=== PATIENT | female | born 1950 | race Caucasian/White ===

== ENCOUNTER 2022-02-21 13:49 | Inpatient (IN) ==
--- NOTE | 2022-02-21 14:11 | ED.PDOC ---
General ED Provider: Dr. ISAIAH SALDAÑA MD Chief Complaint: Weakness Stated Complaint: Patient presents with a one month history of generalized weakness that has progressively worsened over the past 7-10 days. She can no longer stand or walk. Patient denies fever, chills, malaise, poor appetite, dyspnea, cough, chest pain, palpitations, syncope, nausea, emesis, abdominal pain, diarrhea, melena, hematochezia or urinary tract symptoms. She has had increased peripheral edema. Time Seen by Provider: 02/21/22 13:50 Mode of Arrival: Ambulance Information Source: Patient Primary Care Provider: ANN PAREDES Nursing and Triage Documentation Reviewed and Agree: Yes Does patient meet sepsis criteria?: No System Inflammatory Response Syndrome: Not Applicable Sepsis Protocol: For patient's 13 years and over: Temp is 96.8 and below OR 101 and greater Pulse >90 BPM Resp >20/minute Acutely Altered Mental Status Are patient's symptoms suggestive of a new infection, such as: -Pneumonia -Skin, Soft Tissue -Endocarditis -UTI -Bone, Joint Infection -Implantable Device -Acute Abdominal Infection -Wound Infection -Meningitis -Blood Stream Catheter Infection -Unknown Miscellaneous Complaint Exam Complex/Multi-System Complaint/Exam Onset/Duration: one month history of progressive generalized weakness Symptoms Are: Still present Initial Severity: Mild Current Severity: Severe Associated Signs and Symptoms: Reports Weakness and Edema Respiratory Distress: None JVD Present: No Tachypnea Present: No Stridor Present: No Abdominal Findings: Present Normal findings Focal Weakness: Present None Focal Sensory Loss: Present None Gait: Unable Gag Reflex Present: Yes Skin Findings: Present Normal findings In-Dwelling Device Present: No Review of Systems Review Of Systems Constitutional: Reports Weakness Eyes: Reports No symptoms Ears, Nose, Mouth, Throat: Reports No symptoms Respiratory: Reports No symptoms Cardiac: Reports Edema GI: Reports No symptoms : Reports No symptoms Musculoskeletal: Reports No symptoms Skin: Reports No symptoms Endocrine: Reports No symptoms Hematologic/Lymphatic: Reports No symptoms All Other Systems: Reviewed and Negative Physical Exam Physical Exam Appearance: Reports No pain distress, Obese and Other (Morbidly obese elderly female who is alert and in NAD. She is breathing without difficulty. She does appear to be chronically ill. ) Ill-appearing: Moderate (chronically ill appearing) Pain Distress: None Eyes: Reports Not Examined ENT: Reports Nose normal and Oropharynx normal Neck: Supple Respiratory: Reports Airway patent, Breath sounds clear and Breath sounds equal Cardiovascular: Reports RRR, No rub, No murmur and Not Examined (Marked edema bilaterally ) GI/: Reports Soft, Nontender, No masses and Bowel sounds normal Musculoskeletal: Reports Not Examined Skin: Reports Warm, Dry and Normal color Neurological: Reports Alert and Oriented Psychiatric: Reports Affect appropriate and Mood appropriate Interpretation Radiology Interpretation Radiology Interpretation By: Radiologist Exam Interpreted: Portable CXR (no acute cardiopulmonary findings) EKG Interpretation Time of EKG #1: 13:53 Rate: Normal Rhythm: Sinus Ectopy: None Omega: NL ST Segment: Normal Interpretation: low voltage QRS, 1st degree AV block, otherwise normal EKG Physician Notification Case Discussed Physician Notified: Dr Paredes Time of Notification: 17:43 Comments: Patient will be admitted for diuresis. She will be given IV antibiotics. PT to be consulted. Critical Care Note Critical Care Note Total Critical Care Time (mins): 0 Course Course Hematology/Chemistry: 02/21/22 14:09 02/21/22 14:09 Orders, Labs, Meds: Lab Review 02/21/22 02/21/22 02/21/22 14:09 14:09 15:20 WBC 5.33 RBC 3.55 L Hgb 11.8 L Hct 37.1 MCV 104.5 H MCH 33.2 H MCHC 31.8 RDW Coeff of Cameron 15.0 H Plt Count 286 Immature Gran % (Auto) 0.4 Neut % (Auto) 58.1 Lymph % (Auto) 28.9 Clayton % (Auto) 9.9 Eos % (Auto) 1.9 Baso % (Auto) 0.8 Neut # (Auto) 3.1 Lymph # (Auto) 1.5 Clayton # (Auto) 0.5 Eos # (Auto) 0.1 Baso # (Auto) 0.0 Immature Gran # (Auto) 0.0 Puncture Site Base Excess O2 Saturation ABG pH ABG pCO2 ABG pO2 ABG HCO3 ABG Total CO2 González Test Hemoglobin Oxyhemoglobin Carboxyhemoglobin Total Hemoglobin FiO2 % Sodium 130.4 L Potassium 4.82 Chloride 100.2 Carbon Dioxide 17.7 L Anion Gap 17.32 BUN 34.8 H Creatinine 1.59 H Estimated GFR (MDRD) 32.00 BUN/Creatinine Ratio 21.88 Glucose 113.3 H Lactic Acid Calcium 7.58 L Phosphorus Magnesium Total Bilirubin 0.76 AST 71.8 H ALT 92.9 H Alkaline Phosphatase 150.8 H Troponin I < 0.012 NT-Pro-B Natriuret Pep 2770.000 H Total Protein 5.34 L Albumin 2.55 L Globulin 2.79 Albumin/Globulin Ratio 0.91 TSH < 0.015 L Urine Color Yellow Urine Clarity Clear Urine pH 5.5 Ur Specific [place] 1.025 Urine Protein Negative Urine Glucose (UA) Negative Urine Ketones Trace H Urine Blood Negative Urine Nitrite Negative Urine Bilirubin Negative Urine Urobilinogen 0.2 Ur Leukocyte Esterase 1+ H Urine Microscopic RBC 0-2 Urine Microscopic WBC 10-20 Ur Squamous Epith Cells Not present Urine Bacteria 3+ SARS CoV-2 RNA Rapid FEI 02/21/22 02/21/22 02/21/22 15:30 15:47 16:46 WBC RBC Hgb Hct MCV MCH MCHC RDW Coeff of Cameron Plt Count Immature Gran % (Auto) Neut % (Auto) Lymph % (Auto) Clayton % (Auto) Eos % (Auto) Baso % (Auto) Neut # (Auto) Lymph # (Auto) Clayton # (Auto) Eos # (Auto) Baso # (Auto) Immature Gran # (Auto) Puncture Site Rr Base Excess -11.8 L O2 Saturation 98.4 H ABG pH 7.36 ABG pCO2 24.0 L ABG pO2 117.0 H ABG HCO3 13.6 L ABG Total CO2 14.3 L González Test Pos Hemoglobin 0.8 Oxyhemoglobin 96.5 Carboxyhemoglobin 0.7 Total Hemoglobin 13.1 FiO2 % 21.0 Sodium Potassium Chloride Carbon Dioxide Anion Gap BUN Creatinine Estimated GFR (MDRD) BUN/Creatinine Ratio Glucose Lactic Acid Calcium Phosphorus 4.92 H Magnesium 3.65 H Total Bilirubin AST ALT Alkaline Phosphatase Troponin I NT-Pro-B Natriuret Pep Total Protein Albumin Globulin Albumin/Globulin Ratio TSH Urine Color Urine Clarity Urine pH Ur Specific [place] Urine Protein Urine Glucose (UA) Urine Ketones Urine Blood Urine Nitrite Urine Bilirubin Urine Urobilinogen Ur Leukocyte Esterase Urine Microscopic RBC Urine Microscopic WBC Ur Squamous Epith Cells Urine Bacteria SARS CoV-2 RNA Rapid FEI Negative 02/21/22 16:46 WBC RBC Hgb Hct MCV MCH MCHC RDW Coeff of Cameron Plt Count Immature Gran % (Auto) Neut % (Auto) Lymph % (Auto) Clayton % (Auto) Eos % (Auto) Baso % (Auto) Neut # (Auto) Lymph # (Auto) Clayton # (Auto) Eos # (Auto) Baso # (Auto) Immature Gran # (Auto) Puncture Site Base Excess O2 Saturation ABG pH ABG pCO2 ABG pO2 ABG HCO3 ABG Total CO2 González Test Hemoglobin Oxyhemoglobin Carboxyhemoglobin Total Hemoglobin FiO2 % Sodium Potassium Chloride Carbon Dioxide Anion Gap BUN Creatinine Estimated GFR (MDRD) BUN/Creatinine Ratio Glucose Lactic Acid 1.28 Calcium Phosphorus Magnesium Total Bilirubin AST ALT Alkaline Phosphatase Troponin I NT-Pro-B Natriuret Pep Total Protein Albumin Globulin Albumin/Globulin Ratio TSH Urine Color Urine Clarity Urine pH Ur Specific [place] Urine Protein Urine Glucose (UA) Urine Ketones Urine Blood Urine Nitrite Urine Bilirubin Urine Urobilinogen Ur Leukocyte Esterase Urine Microscopic RBC Urine Microscopic WBC Ur Squamous Epith Cells Urine Bacteria SARS CoV-2 RNA Rapid FEI Orders Category Date Time Status ABG DRAW REQUEST Stat CARDIO 02/21/22 15:46 Completed EKG-(ED ONLY) Stat CARDIO 02/21/22 14:00 Completed Martínez [ED CATHETER INSERTION AND CARE] .ONCE EMERGENCY 02/21/22 14:54 Active Saline Lock [ED IV/MEDIPORT/POWERPORT] .ONCE EMERGENCY 02/21/22 14:54 Active ABG COOX Stat LAB 02/21/22 15:47 Completed CBC W/ AUTO DIFF Stat LAB 02/21/22 14:09 Completed CMP [COMPREHENSIVE METABOLIC PANEL] Stat LAB 02/21/22 14:09 Completed LACTIC ACID Stat LAB 02/21/22 16:46 Completed MAGNESIUM Stat LAB 02/21/22 16:46 Completed NT-PROBNP Stat LAB 02/21/22 14:09 Completed PHOSPHORUS Stat LAB 02/21/22 16:46 Completed SARS COV-2 RNA RAPID FEI Stat LAB 02/21/22 15:30 Completed THYROID STIMULATING HORMONE Stat LAB 02/21/22 14:09 Completed TROPONIN I Stat LAB 02/21/22 14:09 Completed URINALYSIS C & S IF INDICATED Stat LAB 02/21/22 15:20 Completed URINE CULTURE Stat LAB 02/21/22 15:20 Received 0.9 % Sodium Chloride [Saline Flush] MEDS 02/21/22 14:54 Active 1 syr IVF PRN PRN Furosemide [Lasix] MEDS 02/21/22 14:54 Discontinued 80 mg IVP ONCE STA CXR [CHEST, 1V AP ONLY] Stat RADS 02/21/22 14:00 Completed Medications Generic Name Dose Route Start Last Admin Trade Name Kwan PRN Reason Stop Dose Admin Sodium Chloride 1 syr 02/21/22 14:54 02/21/22 15:39 0.9% Sodium Chloride 10 Ml Disp.Syrin IVF 1 syr PRN PRN Administration To flush IV Discontinued Medications Generic Name Dose Route Start Last Admin Trade Name Kwan PRN Reason Stop Dose Admin Furosemide 80 mg 02/21/22 14:54 02/21/22 15:39 Furosemide Inj 100 Mg/10 Ml Vial IVP 02/21/22 14:55 80 mg ONCE STA Administration Vital Signs: Temp Pulse Resp BP Pulse Ox 02/21/22 13:50 97.4 F L 76 16 137/60 97 Discharge Plan Discharge Patient Disposition: ADMITTED INPATIENT Discharge Problem: Generalized weakness, Congestive heart failure, Hypothyroidism, Morbid obesity, Elevated liver enzymes, Renal insufficiency, Acute urinary tract infection Prescriptions: No Action carisoprodol [Soma] 350 mg Tablet 350 mg PO TID metolazone [Zaroxolyn] 2.5 mg Tablet 2.5 mg PO DIRECTED Rx Instructions: take 1-3 times per week pravastatin [Pravachol] 40 mg Tablet 40 mg PO DAILY potassium chloride [K-Tab] 10 mEq Tablet Extended Release 10 meq PO DAILY bisoprolol fumarate [Zebeta] 5 mg Tablet 5 mg PO DAILY lorazepam [Ativan] 0.5 mg Tablet 1 mg PO BID oxycodone-acetaminophen 10-325 mg tablet 1 tab PO 4XD PRN (Reason: Pain) esomeprazole magnesium [Nexium] 40 mg Capsule,Delayed Release(Dr/Ec) 40 mg PO DAILY levothyroxine [Synthroid] 150 mcg Tablet 150 mcg PO DAILY furosemide 20 mg tablet 20 mg PO DAILY Calcium + Vitamin D 600 mg calcium- 200 unit Tablet 2 tab PO DAILY Flintstones Plus Iron 15 mg iron Tablet,Chewable 1 tab PO DAILY ropinirole 2 mg tablet 2 mg PO BEDTIME Did you review [place] WORK[employer] MANAGER?: Not Applicable ED Provider: ISAIAH SALDAÑA Condition: Serious Physician Progress Note: []
[2022-02-21 14:15] LABS: BASOPHILS % (AUTO) 0.8 % (0.0-3.0); EOSINOPHILS # (AUTO) 0.1 K/ul (0.0-0.7); EOSINOPHILS % (AUTO) 1.9 % (0.0-7.0); HEMATOCRIT 37.1 % (37.0-47.0); HEMOGLOBIN 11.8 g/dl (12.0-16.0); IMMATURE GRANULOCYTE % (AUTO) 0.4 % (0.0-5.0); LYMPHOCYTES # (AUTO) 1.5 K/uL (0.60-3.4); LYMPHOCYTES % (AUTO) 28.9 (10.0-50.0); MEAN CORPUSCULAR HEMOGLOBIN 33.2 pg (27.0-31.0); MEAN CORPUSCULAR HGB CONC 31.8 (31.8-35.4); MEAN CORPUSCULAR VOLUME 104.5 fl (81.0-99.0); MONOCYTES # (AUTO) 0.5 K/uL (0.4-2.0); MONOCYTES % (AUTO) 9.9 (0-10); NEUTROPHILS # (AUTO) 3.1 K/ul (2.0-6.9); NEUTROPHILS % (AUTO) 58.1 % (42.2-75.2); PLATELET COUNT 286 10^3/uL (140-440); RED BLOOD COUNT 3.55 10^6/ul (4.20-5.40); WHITE BLOOD COUNT 5.33 K/ul (4.6-10.2)
[2022-02-21 14:28] LABS: ALANINE AMINOTRANSFERASE 92.9 U/L (0-35); ALBUMIN 2.55 g/dL (3.5-5.0); ALKALINE PHOSPHATASE 150.8 U/L (53-141); ASPARTATE AMINO TRANSFERASE 71.8 U/L (14-36); BILIRUBIN,TOTAL 0.76 mg/dL (0.2-1.3); BLOOD UREA NITROGEN 34.8 mg/dL (7-17); CALCIUM 7.58 mg/dL (8.4-10.2); CARBON DIOXIDE 17.7 mmol/L (22-30.0); CHLORIDE 100.2 mmol/L (98-107); CREATININE 1.59 mg/dL (0.60-1.30); GLUCOSE 113.3 mg/dL (74-106); POTASSIUM 4.82 mmol/L (3.5-5.1); SODIUM 130.4 mmol/L (134.5-145); TOTAL PROTEIN 5.34 g/dL (6.3-8.2)
[2022-02-21 14:42] LABS: TROPONIN I < 0.012 ng/ml (0.0000-0.120)
[2022-02-21] MEDS ORDERED: URO-JET MUCOUSMEMB STA (14:54)
[2022-02-21] MEDS ORDERED: LASIX IVP STA (14:54)
[2022-02-21 14:59] LABS: THYROID STIMULATING HORMONE < 0.015 uIU/L (0.465-4.68)
--- NOTE | 2022-02-21 15:20 | DI ---
EXAM: Chest one-view portable upright AP HISTORY: Weakness peripheral edema dyspnea COMPARISON: None FINDINGS: Lungs are clear. Cardiac silhouette is normal. Vascular calcifications present in the ao rtic arch. Degenerative changes noted in the glenohumeral joints. IMPRESSION: Negative chest. No active cardiopulmonary disease
[2022-02-21 16:04] LABS: BILIRUBIN,URINE Negative (NEGATIVE); CLARITY,URINE Clear (CLEAR); COLOR,URINE Yellow (YELLOW); GLUCOSE, URINE (UA) Negative (NEGATIVE); KETONES,URINE Trace (NEGATIVE); LEUKOCYTE ESTERASE ,URINE 1+ (NEGATIVE); NITRITE,URINE Negative (NEGATIVE); PH,URINE 5.5 (5-9); PROTEIN,URINE Negative (NEGATIVE); URINE, BLOOD Negative (NEGATIVE); UROBILINOGEN,URINE 0.2 (0.2)
[2022-02-21 16:05] LABS: SQUAMOUS EPITHELIAL CELL,UR NOT PRESENT (0-5)
[2022-02-21 16:13] LABS: BACTERIA,URINE 3+ (NOT PRESENT); URINE RBC, MICROSCOPIC 0-2 (0-2)
[2022-02-21 16:22] LABS: ABG O2 HGB 96.5 % (95-100); ABG PH 7.36 (7.35-7.45); BEecf -11.8 (-2.0-3.0); COHb 0.7 (0.5-1.5); HCO3 13.6 (21-28); MetHb 0.8 (0-1.5); TCO2 14.3 (19-24); sO2 98.4 % (94-98); tHb 13.1 g/dl (11.7-17.4)
[2022-02-21 17:01] LABS: MAGNESIUM 3.65 mg/dL (1.6-2.3); PHOSPHORUS 4.92 mg/dL (2.5-4.5)
[2022-02-21] MEDS ORDERED: TYLENOL PO PRN ×2 (18:12→19:20)
[2022-02-21] MEDS ORDERED: AZACTAM ONE (19:17)
[2022-02-21] MEDS ORDERED: ATROPINE SULFATE PFS IVP PRN (19:20)
[2022-02-21] MEDS ORDERED: NITROSTAT SL PRN (19:20)
[2022-02-21] MEDS: SODIUM CHLORIDE 1,000 ML IV SCH (19:30)
[2022-02-21] MEDS: LOVENOX SUBCUT SCH (19:31)
[2022-02-21] MEDS: ROCEPHIN 1 GM/50 ML D5W 1 GM/50 ML BAG IV SCH (19:36)
[2022-02-21 19:41] VITALS: BMI 73.7
[2022-02-21 19:45] LABS: CREATINE KINASE 111.8 U/L (30-135)
[2022-02-21 20:02] LABS: TROPONIN I < 0.012 ng/ml (0.0000-0.120)
[2022-02-21] MEDS: ATIVAN PO SCH (21:10)
[2022-02-21] MEDS: AZACTAM IV SCH ×2 (21:18→21:19)
[2022-02-21] MEDS: SODIUM CHLORIDE IV SCH ×2 (21:18→21:19)
[2022-02-22] MEDS: PERCOCET 10-325 PO SCH ×5 (00:13→17:45)
[2022-02-22 03:32] LABS: BASOPHILS % (AUTO) 0.6 % (0.0-3.0); EOSINOPHILS # (AUTO) 0.1 K/ul (0.0-0.7); EOSINOPHILS % (AUTO) 1.7 % (0.0-7.0); HEMATOCRIT 33.8 % (37.0-47.0); HEMOGLOBIN 10.8 g/dl (12.0-16.0); IMMATURE GRANULOCYTE % (AUTO) 0.4 % (0.0-5.0); LYMPHOCYTES # (AUTO) 1.6 K/uL (0.60-3.4); LYMPHOCYTES % (AUTO) 31.5 (10.0-50.0); MEAN CORPUSCULAR VOLUME 103.4 fl (81.0-99.0); MONOCYTES # (AUTO) 0.6 K/uL (0.4-2.0); MONOCYTES % (AUTO) 10.6 (0-10); NEUTROPHILS # (AUTO) 2.9 K/ul (2.0-6.9); NEUTROPHILS % (AUTO) 55.2 % (42.2-75.2); PLATELET COUNT 233 10^3/uL (140-440); RDW COEFFICIENT OF VARIATION 15.3 % (11.6-14.8); RED BLOOD COUNT 3.27 10^6/ul (4.20-5.40); WHITE BLOOD COUNT 5.18 K/ul (4.6-10.2)
[2022-02-22 03:44] LABS: ALANINE AMINOTRANSFERASE 80.9 U/L (0-35); ALBUMIN 2.26 g/dL (3.5-5.0); ALKALINE PHOSPHATASE 125.7 U/L (53-141); ASPARTATE AMINO TRANSFERASE 53.2 U/L (14-36); BILIRUBIN,TOTAL 0.56 mg/dL (0.2-1.3); BLOOD UREA NITROGEN 34.8 mg/dL (7-17); CARBON DIOXIDE 17.3 mmol/L (22-30.0); CHLORIDE 102.1 mmol/L (98-107); CREATINE KINASE 101.1 U/L (30-135); GLUCOSE 99.7 mg/dL (74-106); POTASSIUM 5.02 mmol/L (3.5-5.1); SODIUM 130.9 mmol/L (134.5-145); TOTAL PROTEIN 4.85 g/dL (6.3-8.2)
[2022-02-22 03:56] LABS: TROPONIN I < 0.012 ng/ml (0.0000-0.120)
[2022-02-22] MEDS: SYNTHROID PO SCH (05:30)
[2022-02-22] MEDS: SOMA PO SCH ×4 (06:04→20:25)
[2022-02-22 06:05] LABS: ABG PH 7.39 (7.35-7.45); BEecf -9.9 (-2.0-3.0); COHb 0.6 (0.5-1.5); HCO3 15.1 (21-28); MetHb 0.8 (0-1.5); TCO2 15.9 (19-24); sO2 97.8 % (94-98)
[2022-02-22 06:06] LABS: ABG O2 HGB 96.2 % (95-100); tHb 11.6 g/dl (11.7-17.4)
[2022-02-22] MEDS ORDERED: PROTONIX PO SCH (09:00)
[2022-02-22] MEDS ORDERED: MICRO-K CAP PO SCH (09:00)
[2022-02-22] MEDS: ROCEPHIN 1 GM/50 ML D5W 1 GM/50 ML BAG IV SCH (09:02)
[2022-02-22] MEDS: ZEBETA PO SCH (09:11)
[2022-02-22] MEDS: LASIX TAB PO SCH (09:12)
[2022-02-22] MEDS: LOVENOX SUBCUT SCH (09:12)
[2022-02-22] MEDS: ATIVAN PO SCH ×2 (09:12→20:26)
--- NOTE | 2022-02-22 10:00 | PN ---
DATE OF SERVICE: 02/21/22 ADMIT NOTE SUBJECTIVE: 71 year old white female came to the ER with extreme weakness. The patient had inability to walk. Workup showed the patient was dehydrated and had mild metabolic acidosis. The patient had mild shortness of breath as usual but no PND, no orthopnea. Some labs were abnormal. The patient had generalized weakness. ABG showed pH 7.36, pO2 117 with pCO2 of 24 with saturation 98%. Cardiac markers are negative. Chest x-ray was negative. REVIEW OF SYSTEMS: CONSTITUTIONAL: No night sweats. No fatigue, malaise, lethargy. No fever or chills. HEENT: Eyes: No visual changes. No eye pain. No eye discharge. ENT: No runny nose. No epistaxis. No sinus pain. No sore throat. No odynophagia. No congestion. RESPIRATORY: No cough, no congestion. No hemoptysis. No shortness of breath. CARDIOVASCULAR: No angina symptoms. No CHF symptoms. No atypical chest pain for CAD. No palpitations. No PND. No orthopnea. GASTROINTESTINAL: No abdominal pain. No nausea or vomiting. No diarrhea or constipation. No hematemesis. No hematochezia. GENITOURINARY: No urgency. No frequency. No dysuria. No hematuria. No obstructive symptoms. No discharge. No pain. No significant abnormal bleeding. MUSCULOSKELETAL: No musculoskeletal pain; no joint swelling. NEUROLOGICAL: No headache. No neck pain. No syncope. No seizures. No dizziness. PSYCHIATRIC: Not anxious. No depression. No suicidal thoughts. No homicidal thoughts. SKIN: No rash. No lesions. No wounds. ENDOCRINE: No unexplained weight loss. No weight gain. HEMATOLOGIC/LYMPHATIC: No anemia. No purpura. No petechiae. No prolonged or excessive bleeding. No palpable lymph nodes. PHYSICAL EXAMINATION: HEENT: Head normocephalic, atraumatic. Eyes: Extraocular muscles are intact. Pupils are equal, round and reactive to light and accommodation. Ears: No lesions. Nose appeared normal. Throat: No exudate or erythema. NECK: Supple. No JVD, no carotid bruit. No lymphadenopathy or thyromegaly. LUNGS: Clear to auscultation. Percussion note normal. Chest symmetrical. HEART: S1, S2, no S3. No murmurs. No cyanosis or clubbing. No ascites. Pulses: Dorsalis pedis and posterior tibial pulses +1 to +2 bilaterally. ABDOMEN: Soft. Nontender. Bowel sounds active. No CVA tenderness. No mass felt. EXTREMITIES: No edema. Full range of motion of all extremities, equal. NEUROLOGIC: No focal deficit. Cranial nerves II through XII are grossly intact. No headache. No double vision. SKIN: Not dry. Intact. Turgor - normal. LYMPHATIC: No palpable lymph nodes/no lymphedema. MUSCULOSKELETAL: Normal joints with no swelling. Muscle tone is normal. ASSESSMENT: 1. Initial diagnosis was CHF which I disagree with. The patient's leg edema and elevated BNP was secondary to poor kidney function and other causes. Main problem is self medication administered by herself and abuse of medications. 2. Also had evidence of UTI. PLAN: 1. Admit the patient 2. IV antibiotics and IV fluids 3. 1 dose of IV Lasix TIME SPENT: More than 30 minutes. Plan and coordination of the patient's care discussed in the presence of nurse. SUE
[2022-02-22] MEDS: AZACTAM IV SCH ×2 (10:13→20:14)
[2022-02-22] MEDS: SODIUM CHLORIDE IV SCH ×2 (10:13→20:14)
--- NOTE | 2022-02-22 10:22 | PCM.PROG ---
Attending Provider: ATTENDING PROVIDER: Dr. ANN PAREDES DATE OF SERVICE: 02/22/22 SUBJECTIVE: This 71 year old /WHITE F was hospitalized 02/21/22 with generalized weakness and inability to walk. The patient is laying flat. REVIEW OF SYSTEMS: CONSTITUTIONAL: No night sweats. No fatigue, malaise, lethargy. No fever or chills. HEENT: Eyes: No visual changes. No eye pain. No eye discharge. ENT: No runny nose. No epistaxis. No sinus pain. No odynophagia. No congestion. RESPIRATORY: No cough, no congestion. No hemoptysis. No shortness of breath. CARDIOVASCULAR: No angina symptoms. No CHF symptoms. No atypical chest pain for CAD. No palpitations. No orthopnea.. GASTROINTESTINAL: No abdominal pain. No nausea or vomiting. No diarrhea or constipation. No hematemesis. No hematochezia. GENITOURINARY: No urgency. No frequency. No dysuria. No hematuria. No obstructive symptoms. No discharge. No pain. No significant abnormal bleeding. MUSCULOSKELETAL: No musculoskeletal pain; no joint swelling. NEUROLOGICAL: Awake, alert, oriented to time, place and person. No headache. No neck pain. No syncope. No seizures. No dizziness. PSYCHIATRIC: Not anxious. No depression. No suicidal thoughts. No homicidal thoughts. SKIN: No rash. No lesions. No wounds. ENDOCRINE: No unexplained weight loss. No weight gain. HEMATOLOGIC/LYMPHATIC: No anemia. No purpura. No petechiae. No prolonged or excessive bleeding. No palpable lymph nodes. PHYSICAL EXAMINATION: GENERAL: The patient is awake, alert and oriented, lying in bed in no distress. VITAL SIGNS: Temperature 97.3 F, Pulse 79, Respiratory Rate 18, BP 114/67, Pulse Ox 100% HEENT: Head normocephalic, atraumatic. Eyes: Extraocular muscles are intact. Pupils are equal, round and reactive to light and accommodation. Ears: No lesions. Nose appeared normal. Throat: No exudate or erythema. NECK: Supple. No JVD, no carotid bruit. No lymphadenopathy or thyromegaly. LUNGS: Decreased breath sounds. Clear to auscultation. Percussion note normal. Chest symmetrical. HEART: S1, S2, no S3. No murmurs. No cyanosis or clubbing. No ascites. Pulses: Dorsalis pedis and posterior tibial pulses +1 to +2 both sides. ABDOMEN: Soft. Non-tender. Bowel sounds active. No CVA tenderness. No mass felt. EXTREMITIES: No edema. Full range of motion of all extremities, equal. NEUROLOGIC: No focal deficit. Cranial nerves II through XII are grossly intact. No headache, no double vision or headache. SKIN: Warm and dry. Intact. Turgor-normal. LYMPHATIC: No palpable lymph nodes/no lymphedema. MUSCULOSKELETAL: Normal joints with no swelling. Muscle tone is normal. LAB REVIEW: 02/22/22 03:30 02/22/22 03:30 02/22/22 06:00: Puncture Site Rrad, Base Excess -9.9 L, O2 Saturation 97.8, ABG pH 7.39, ABG pCO2 25.0 L, ABG pO2 102.0 H, ABG HCO3 15.1 L, ABG Total CO2 15.9 L , González Test +, Hemoglobin 0.8, Oxyhemoglobin 96.2, Carboxyhemoglobin 0.6, Total Hemoglobin 11.6 L, FiO2 % 21.0 02/22/22 03:30: Sodium 130.9 L, Potassium 5.02, Chloride 102.1, Carbon Dioxide 17.3 L, Anion Gap 16.52, BUN 34.8 H, Creatinine 1.50 H, Estimated GFR (MDRD) 34.00, BUN/Creatinine Ratio 23.20, Glucose 99.7, Calcium 7.50 L, Total Bilirubin 0.56, AST 53.2 H, ALT 80.9 H, Alkaline Phosphatase 125.7 D, Total Creatine Kinase 101.1, Troponin I < 0.012, Total Protein 4.85 L, Albumin 2.26 L, Globulin 2.59, Albumin/Globulin Ratio 0.87 02/22/22 03:30: WBC 5.18, RBC 3.27 L, Hgb 10.8 L, Hct 33.8 L, MCV 103.4 H, MCH 33.0 H, MCHC 32.0, RDW Coeff of Cameron 15.3 H, Plt Count 233, Immature Gran % (Auto) 0.4, Neut % (Auto) 55.2, Lymph % (Auto) 31.5, Coleman % (Auto) 10.6 H, Eos % (Auto) 1.7, Baso % (Auto) 0.6, Neut # (Auto) 2.9, Lymph # (Auto) 1.6, Coleman # (Auto) 0.6, Eos # (Auto) 0.1, Baso # (Auto) 0.0, Immature Gran # (Auto) 0.0 02/21/22 17:30: Total Creatine Kinase 111.8, Troponin I < 0.012 02/21/22 16:46: Lactic Acid 1.28 02/21/22 16:46: Phosphorus 4.92 H, Magnesium 3.65 H 02/21/22 15:47: Puncture Site Rr, Base Excess -11.8 L, O2 Saturation 98.4 H, ABG pH 7.36, ABG pCO2 24.0 L, ABG pO2 117.0 H, ABG HCO3 13.6 L, ABG Total CO2 14.3 L , González Test Pos, Hemoglobin 0.8, Oxyhemoglobin 96.5, Carboxyhemoglobin 0.7, Total Hemoglobin 13.1, FiO2 % 21.0 02/21/22 15:30: SARS CoV-2 RNA Rapid FEI Negative 02/21/22 15:20: Urine Color Yellow, Urine Clarity Clear, Urine pH 5.5, Ur Specific [place] 1.025, Urine Protein Negative, Urine Glucose (UA) Negative, Urine Ketones Trace H, Urine Blood Negative, Urine Nitrite Negative, Urine Bilirubin Negative, Urine Urobilinogen 0.2, Ur Leukocyte Esterase 1+ H, Urine Microscopic RBC 0-2, Urine Microscopic WBC 10-20, Ur Squamous Epith Cells Not present, Urine Bacteria 3+ 02/21/22 14:09: Sodium 130.4 L, Potassium 4.82, Chloride 100.2, Carbon Dioxide 17.7 L, Anion Gap 17.32, BUN 34.8 H, Creatinine 1.59 H, Estimated GFR (MDRD) 32.00, BUN/Creatinine Ratio 21.88, Glucose 113.3 H, Calcium 7.58 L, Total Bilirubin 0.76, AST 71.8 H, ALT 92.9 H, Alkaline Phosphatase 150.8 H, Troponin I < 0.012, NT-Pro-B Natriuret Pep 2770.000 H, Total Protein 5.34 L, Albumin 2.55 L , Globulin 2.79, Albumin/Globulin Ratio 0.91, TSH < 0.015 L 02/21/22 14:09: WBC 5.33, RBC 3.55 L, Hgb 11.8 L, Hct 37.1, MCV 104.5 H, MCH 33.2 H, MCHC 31.8, RDW Coeff of Cameron 15.0 H, Plt Count 286, Immature Gran % (Auto) 0.4, Neut % (Auto) 58.1, Lymph % (Auto) 28.9, Coleman % (Auto) 9.9, Eos % (Auto) 1.9, Baso % (Auto) 0.8, Neut # (Auto) 3.1, Lymph # (Auto) 1.5, Coleman # (Auto) 0.5, Eos # (Auto) 0.1, Baso # (Auto) 0.0, Immature Gran # (Auto) 0.0 ASSESSMENT: Please see below. 1. Generalized weakness, Could be from dehydration or UTI 2. UTI 3. Abuse of medications, narcotics 4. Morbid obesity with sedentary lifestyle 5. Anemia could be from myelodysplastic syndrome PLAN: 1. IV fluids 2. IV antibiotics 3. Regulate medications 4. Monitor kidney function and cardiac function 5. Telemetry Plan and coordination of the patient's care discussed in the presence of [employer] and nurse. SCRIBED BY: DENISE BUCKNER [employer] scribed while in presence of service performed by Dr. ANN PAREDES on 02/22/22 ([id number])
--- NOTE | 2022-02-22 13:37 | RS.PTINEVL ---
Subjective - Patient information Date of Evaluation: 02/22/22 Date of Arrival on Unit: 02/21/22 Admitted From:: Home Diagnosis: acute UTI, CHF, weakness, h/o falls Usual Living Arrangement: With Spouse Home Environment: House, Ramp Medical History: Hypertension, CHF, Arthritis Surgical History: Cholecystectomy, Hysterectomy Surgical History Comments:: gastric bypass, hernia repair Medications: see chart Subjective Information/ Patient Comments:: pt states that she is tired and that she "can't move her legs good". (Pill found in bed and pt somewhat agitated when therapist would not give her the pill. Notified Jessica RN). pt reports that she only amb very short distances at home with rwx with with her. ( is elderly and appears to have some difficulty walking of his own.) - Level of function Prior to this admission, the patient could do the following:: Partially Dependent Ambulation Current Level of Function: Dependent Current Equipment Used at Home: WALKER, bedside commode Interventions - Objective Patient Orientation: Person, Place Current Interventions: IV's, Telemetry Observation: pt with open area noted to R heel. Notified Jessica RN. pt with pitting edema BLE. BLE appear red and dry. Range of Motion - ROM Right Upper Extremity AROM: WFL's Left Upper Extremity AROM: WFL's Right Lower Extremity AROM: Slight limitation (decreased knee ROM) Left Lower Extremity AROM: Slight limitation (decreased knee ROM) Muscle Strength - Muscle Strength Right Upper Extremity Strength: Mild Weakness (grossly 4/5) Left Upper Extremity Strength: Mild Weakness (grossly 4/5) Right Lower Extremity Strength: Severe Weakness (hip flex 3-/5, knee flex 3-/5, ext 4-/5 ankle DF/PF 4-/5) Left Lower Extremity Strength: Severe Weakness (hip flex 3-/5, knee flex 3-/5, ext 4-/5 ankle DF/PF 4-/5) Sensation - Sensation Right Upper Extremity Sensation: Intact/Normal Left Upper Extremity Sensation: Intact/Normal Right Lower Extremity Sensation: Intact/Normal Left Lower Extremity Sensation: Intact/Normal Palpation Palpation Findings: Tenderness (bilateral lower legs and feet.) Balance - Sitting Balance and Reactions Static Sitting Balance: Fair Dynamic Sitting Balance: Fair (fair-) - Standing Balance and Reactions Static Standing Balance: Poor Dynamic Standing Balance: Poor Standing Equilibrium Reactions: Delayed Left, Delayed Right Standing Protective Reactions: Delayed Left, Delayed Right - Comments Balance Assessment Comments: pt does not follow commands for safety and requires repeated verbal and tactile cues for hand placement on walker, when to sit, etc . Functional Mobility - Bed Mobility Rolling R/L: Max Assist, 2 person assist Scooting: Max Assist, 2 person assist Supine to Sit: Max Assist, 2 person assist Sit to Supine: Max Assist, 2 person assist - Transfers Sit to Stand: Mod Assist, Max Assist, 2 person assist Stand to Sit: Mod Assist, Max Assist, 2 person assist - Safety Awareness Safety Awareness: Poor JOHANNE INDEX SCORE: n/a Ambulation - Ambulation Assistive Device Used: Rolling Walker (bariatric) Orthotic/Prosthetic Device: No Distance: 2-3 steps Assistance needed with Ambulation: Mod Assist, 2 person assist Gait Deviations: Shuffling gait, Forward posture, Short stride Ambulation Comments: pt amb 2-3 steps from bed to/from bedside commode with mod x 2 Factors Affecting Ambulation: Decreased Balance, Weakness, Decreased Safety, Limited Endurance Treatment time - Time with patient Length of Evaluation: 22 Total treatment time: 31 Patient Education - Education Patient Education: Activity Modification, Education of Plan of Care Teaching Recipient: Patient Teaching Methods: Discussion Comments: discussion with patient regarding d/c plans and POC Assessment - Assessment Problem List:: Decreased level of function, Requires training/education, Decreased safety/Risk of falls, Weakness Rehab Potential: Fair Further Therapy Indicated?: Yes Candidate for Swing Bed for Therapy Services?: Feel pt would benefit from [place] for re[place]. Feel pt would not be safe to return home at this time unless she has the assist of 2 for all transfers, bed mobility. Evaluation Complexity: HISTORY: Medium, EXAM OF BODY SYSTEMS: Medium, CLINICAL PRESENTATION: Medium, CLINICAL DECISION MAKING: Medium Patient's Goal(s): "get better and go home" Short Term Goals GOAL #1: pt independent with rolling in bed w bedrails. Goal to be met by: 02/25/22 GOAL #2: Transfer sup to/from sit mod x 2 Goal to be met by: 02/25/22 GOAL #3: Transfer sit to/from stand min to mod x 2 Goal to be met by: 02/25/22 GOAL #4: pt amb with rwx 25ft with min to mod x 2 Goal to be met by: 02/25/22 GOAL #5: Improve strength BLE 4-/5 Goal to be met by: 02/25/22 Longterm Goals GOAL #1: pt transfer sup to/from sit to/from stand min to mod x 1 Goal to be met by: 02/27/22 GOAL #2: pt able to perform bridging and scooting in bed independently. Goal to be met by: 02/27/22 GOAL #3: pt amb 50ft with rwx min x 1 with improved step length and posture. Goal to be met by: 02/27/22 Plan Plan of Care: Therapeutic EX, Neuromuscular Re-Educ, Therapeutic Activity Other:: gait training Frequency of Treatment: 1-2 X day, as tolerated Duration of Treatment: 5 days Anticipated Discharge Destination: undetermined Treatment Diagnosis (ICD 10 Codes): impaired balance R 26.81. difficulty walking R26.2. muscle weakness M62.81 Has the Physician been added for Co-signature?: Yes
[2022-02-22] MEDS: SODIUM CHLORIDE 1,000 ML IV SCH (14:36)
--- NOTE | 2022-02-22 16:57 | US ---
EXAM: Bilateral lower extremity venous doppler. HISTORY: Bilateral lower extremity edema. COMPARISON: None. TECHNIQUE: A duplex Doppler study was performed consisting of integrated two dimensional (2D) real-t mary imaging color flow Doppler and Doppler spectral analysis utilizing linear array probes. FINDINGS: There is normal flow, venous waveforms, compressibility and augmentation of flow within th e right common femoral, greater saphenous, profunda, femoral, popliteal, posterior tibial, anterior t ibial and peroneal veins. There is normal flow, venous waveforms, compressibility and augmentation of flow within the left comm on femoral, greater saphenous, profunda, femoral, posterior tibial and anterior tibial veins. The le ft popliteal and peroneal veins were not identified due to patient condition. Subcutaneous edema present in both calves. IMPRESSION: No evidence for right or left lower extremity deep vein thrombosis at the levels examined.
[2022-02-23] MEDS: PERCOCET 10-325 PO SCH ×5 (02:32→23:35)
[2022-02-23 03:08] LABS: FREE THYROXINE INDEX 1.9 (1.2-4.9); THYROXINE (T4) 5.1 ug/dL (4.5-12.0); TSH 0.045 uIU/mL (0.450-4.500)
[2022-02-23] MEDS: SODIUM CHLORIDE 1,000 ML IV SCH ×4 (04:43→23:42)
[2022-02-23] MEDS: LASIX TAB PO SCH (05:53)
[2022-02-23] MEDS: SYNTHROID PO SCH (05:53)
[2022-02-23 07:44] LABS: BASOPHILS % (AUTO) 0.9 % (0.0-3.0); EOSINOPHILS # (AUTO) 0.1 K/ul (0.0-0.7); EOSINOPHILS % (AUTO) 2.4 % (0.0-7.0); HEMATOCRIT 35.1 % (37.0-47.0); HEMOGLOBIN 11.2 g/dl (12.0-16.0); IMMATURE GRANULOCYTE % (AUTO) 0.4 % (0.0-5.0); LYMPHOCYTES # (AUTO) 1.6 K/uL (0.60-3.4); MEAN CORPUSCULAR HEMOGLOBIN 32.7 pg (27.0-31.0); MEAN CORPUSCULAR HGB CONC 31.9 (31.8-35.4); MEAN CORPUSCULAR VOLUME 102.3 fl (81.0-99.0); MONOCYTES # (AUTO) 0.5 K/uL (0.4-2.0); MONOCYTES % (AUTO) 11.1 (0-10); NEUTROPHILS # (AUTO) 2.4 K/ul (2.0-6.9); NEUTROPHILS % (AUTO) 51.2 % (42.2-75.2); PLATELET COUNT 256 10^3/uL (140-440); RDW COEFFICIENT OF VARIATION 15.7 % (11.6-14.8); RED BLOOD COUNT 3.43 10^6/ul (4.20-5.40); WHITE BLOOD COUNT 4.59 K/ul (4.6-10.2)
[2022-02-23 08:03] LABS: ALBUMIN 2.32 g/dL (3.5-5.0); ALKALINE PHOSPHATASE 126.1 U/L (53-141); ASPARTATE AMINO TRANSFERASE 44.7 U/L (14-36); BILIRUBIN,TOTAL 0.6 mg/dL (0.2-1.3); BLOOD UREA NITROGEN 33.5 mg/dL (7-17); CALCIUM 7.6 mg/dL (8.4-10.2); CARBON DIOXIDE 16.1 mmol/L (22-30.0); CHLORIDE 104.4 mmol/L (98-107); CREATININE 1.39 mg/dL (0.60-1.30); GLUCOSE 94.4 mg/dL (74-106); POTASSIUM 4.95 mmol/L (3.5-5.1); TOTAL PROTEIN 5.02 g/dL (6.3-8.2)
[2022-02-23] MEDS: AZACTAM IV SCH (09:02)
[2022-02-23] MEDS: SODIUM CHLORIDE IV SCH (09:02)
[2022-02-23] MEDS: ZEBETA PO SCH (09:03)
[2022-02-23] MEDS: SOMA PO SCH ×3 (09:03→21:27)
[2022-02-23] MEDS: ATIVAN PO SCH ×2 (09:04→21:26)
[2022-02-23] MEDS: MICRO-K CAP PO SCH (09:04)
[2022-02-23] MEDS: PROTONIX PO SCH (09:04)
[2022-02-23] MEDS: LOVENOX SUBCUT SCH (09:13)
--- NOTE | 2022-02-23 10:53 | RS.OTINEVL ---
Subjective - Patient information Date of Evaluation: 02/23/22 Date of Arrival on Unit: 02/21/22 Admitted From:: Home Diagnosis: CHF, Weakness PRECAUTIONS: Will sit down when she wants to. Usual Living Arrangement: With Spouse Living Arrangement Comments: WITH SPOUSE Home Environment: House, Ramp Medical History: Hypertension, CHF, Arthritis Surgical History: Cholecystectomy, Hysterectomy Surgical History Comments:: gastric bypass, hernia repair Medications: see chart Subjective Information/ Patient Comments:: "I have a shower chair to sit in in the shower." Pt reports she walks about from here to the bathroom. Pt reports she has a girl come 1x wk every 2 weeks to clean, do laundry, cook, and shop. - Level of function Prior to this admission, the patient could do the following:: Partially Dependent Ambulation Abilities prior to this admission: Pt sits in a chair at home most of the time. Current Level of Function: Partially Dependent Current Equipment Used at Home: WALKER, bedside commode Pain Assessment - Pain Pain Location Body Site: Back Pain Aggravating Factors: Changing Position, Standing Pain Alleviating Factors: Medication, Lying Supine Interventions - Objective Patient Orientation: Person, Place, Time, Situation Current Interventions: IV's, Telemetry Observation: Pt not wearing O2. Pt requires moderate assistance to get legs across the bed. Pt is min to moderate assistance for sit to stand. Interventions - ROM Right Upper Extremity AROM: WFL's Left Upper Extremity AROM: WFL's - Strength Right Upper Extremity Strength: Mild Weakness Left Upper Extremity Strength: Mild Weakness - Sensation Right Upper Extremity Sensation: Intact/Normal Left Upper Extremity Sensation: Intact/Normal Balance - Sitting Balance Static Sitting Balance: Normal Dynamic Sitting Balance: Normal - Standing Balance Static Standing Balance: Fair Dynamic Standing Balance: Fair ADL Skills - Self Feeding Self Feeding: Independent - Grooming Grooming: Min Assist Grooming Set-up: Sitting - Bathing Bathing UE: Min Assist Bathing LE: Max Assist - Dressing Dressing UE: Min Assist Dressing LE: Max Assist - Toilet Management Toilet Hygiene: Max Assist Toilet Clothing Management: Max Assist Functional Mobility - Bed Mobility Rolling R/L: Mod Assist Scooting: Mod Assist Supine to Sit: Max Assist, 1 person assist Sit to Supine: Max Assist, 1 person assist - Transfers Sit to Stand: Mod Assist, 2 person assist Stand to Sit: Min Assist, 1 person assist Stand Pivot Transfers: 1 person assist - Ambulation Weight Bearing Status: FWB Assistive Device Used: Rolling Walker JOHANNE INDEX SCORE: . Additional Treatment Performed - Additional units charged ADL: 15 - Time with patient Length of Evaluation: 18 Total treatment time: 33 Activities Do you enjoy playing games?: Yes Would you be interested in leaving your room for activities?: Yes Would you enjoy group activities?: Yes Do you have difficulty with your vision?: Yes What types of things do you enjoy doing? Any Hobbies?: IPAD, Phone. Patient Interests:: Watching Television Patient Education Patient Education: Home Exercise Program, Activity Modification, Education of Plan of Care Teaching Recipient: Patient Teaching Methods: Discussion, Demonstration Assessment Problem List:: Decreased level of function Evaluation Complexity: HISTORY: Medium, EXAM OF BODY SYSTEMS: Medium, CLINICAL DECISION MAKING: Medium Patient's Goal(s): To get where she can walk out of herself to the outside. Short Term Goals - Goals GOAL 1: Pt to increase toilet transfer to CGA with RW. Goal to be met by: 02/28/22 GOAL 2: To understand and demonstrate use of LB dressing Adaptive Equipment. Goal to be met by: 02/28/22 GOAL 3: Pt to increase dyn. std. bal. to 8 minutes for self care. Goal to be met by: 02/28/22 [facility] Goals GOAL 1: Pt to be independent with AD for self care. Goal to be met by: 03/03/22 GOAL 2: Pt to be SUP for toilet transfers with RW. Goal to be met by: 03/03/22 GOAL 3: Pt to increase activity tolerance to 12 minutes to increase safety. Goal to be met by: 03/03/22 Plan Plan of Care: Therapeutic EX, Therapeutic Activity, Self-Care/Home Management Frequency of Treatment: 1-2 X day, as tolerated Duration of Treatment: 2 Weeks Anticipated Discharge Destination: [facility] Care Facility Treatment Diagnosis (ICD 10 Codes): Weakness R53.1, Has the Physician been added for Co-signature?: Yes
[2022-02-23] MEDS: ROCEPHIN 1 GM/50 ML D5W 1 GM/50 ML BAG IV SCH (11:03)
[2022-02-23 11:20] LABS: RETICULOCYTE % 2.05 %; RETICULOCYTE HEMOGLOBIN 39.9
[2022-02-23 11:26] LABS: IRON 84.5 ug/dL (37-170)
[2022-02-23 11:36] LABS: % IRON SATURATION 50 %; TOTAL IRON BINDING CAPACITY 170 ug/dL (261-497)
[2022-02-23 12:03] LABS: FERRITIN 81.7 ng/mL (11.1-264.0)
[2022-02-23 12:34] LABS: FOLATE 7.99 ng/mL
[2022-02-23 13:26] LABS: ABG O2 HGB 96.4 % (95-100); ABG PH 7.35 (7.35-7.45); BEecf -12.9 (-2.0-3.0); COHb 0.8 (0.5-1.5); HCO3 12.7 (21-28); MetHb 0.7 (0-1.5); TCO2 13.4 (19-24); sO2 97.7 % (94-98)
[2022-02-23] MEDS ORDERED: MILK OF MAGNESIA PO PRN (18:13)
[2022-02-24 05:08] LABS: BASOPHILS % (AUTO) 0.9 % (0.0-3.0); EOSINOPHILS # (AUTO) 0.2 K/ul (0.0-0.7); HEMATOCRIT 34.6 % (37.0-47.0); HEMOGLOBIN 10.8 g/dl (12.0-16.0); IMMATURE GRANULOCYTE % (AUTO) 0.4 % (0.0-5.0); LYMPHOCYTES # (AUTO) 1.8 K/uL (0.60-3.4); LYMPHOCYTES % (AUTO) 39.9 (10.0-50.0); MEAN CORPUSCULAR HEMOGLOBIN 32.7 pg (27.0-31.0); MEAN CORPUSCULAR HGB CONC 31.2 (31.8-35.4); MEAN CORPUSCULAR VOLUME 104.8 fl (81.0-99.0); MONOCYTES # (AUTO) 0.5 K/uL (0.4-2.0); MONOCYTES % (AUTO) 10.9 (0-10); NEUTROPHILS % (AUTO) 42.9 % (42.2-75.2); PLATELET COUNT 233 10^3/uL (140-440); RDW COEFFICIENT OF VARIATION 15.9 % (11.6-14.8); WHITE BLOOD COUNT 4.59 K/ul (4.6-10.2)
[2022-02-24 05:20] LABS: ALANINE AMINOTRANSFERASE 55.8 U/L (0-35); ALBUMIN 2.24 g/dL (3.5-5.0); ALKALINE PHOSPHATASE 116.5 U/L (53-141); BILIRUBIN,TOTAL 0.54 mg/dL (0.2-1.3); BLOOD UREA NITROGEN 33.8 mg/dL (7-17); CALCIUM 7.53 mg/dL (8.4-10.2); CARBON DIOXIDE 16.3 mmol/L (22-30.0); CHLORIDE 104.6 mmol/L (98-107); CREATININE 1.45 mg/dL (0.60-1.30); GLUCOSE 86.4 mg/dL (74-106); POTASSIUM 4.54 mmol/L (3.5-5.1); SODIUM 132.9 mmol/L (134.5-145); TOTAL PROTEIN 4.83 g/dL (6.3-8.2)
[2022-02-24] MEDS: PERCOCET 10-325 PO SCH ×4 (05:48→23:36)
[2022-02-24] MEDS: LASIX TAB PO SCH (05:48)
[2022-02-24] MEDS: PROTONIX PO SCH (05:48)
[2022-02-24] MEDS: SYNTHROID PO SCH (05:48)
[2022-02-24] MEDS: ATIVAN PO SCH ×2 (09:54→20:20)
[2022-02-24] MEDS: LOVENOX SUBCUT SCH (09:54)
[2022-02-24] MEDS: ZEBETA PO SCH (09:54)
[2022-02-24] MEDS: MICRO-K CAP PO SCH (09:54)
[2022-02-24] MEDS: SOMA PO SCH ×3 (09:54→20:20)
[2022-02-24] MEDS: ROCEPHIN 1 GM/50 ML D5W 1 GM/50 ML BAG IV SCH (09:57)
[2022-02-24] MEDS: MIRALAX PO SCH (14:18)
[2022-02-24] MEDS: ZAROXOLYN PO SCH (14:18)
[2022-02-24] MEDS: SODIUM CHLORIDE 1,000 ML IV SCH (14:24)
[2022-02-25] MEDS: SODIUM CHLORIDE 1,000 ML IV SCH ×3 (02:47→17:30)
[2022-02-25 05:11] LABS: BASOPHILS % (AUTO) 0.6 % (0.0-3.0); EOSINOPHILS # (AUTO) 0.2 K/ul (0.0-0.7); EOSINOPHILS % (AUTO) 4.6 % (0.0-7.0); HEMATOCRIT 31.1 % (37.0-47.0); HEMOGLOBIN 9.9 g/dl (12.0-16.0); IMMATURE GRANULOCYTE % (AUTO) 0.4 % (0.0-5.0); LYMPHOCYTES # (AUTO) 2.1 K/uL (0.60-3.4); LYMPHOCYTES % (AUTO) 43.1 (10.0-50.0); MEAN CORPUSCULAR HEMOGLOBIN 33.6 pg (27.0-31.0); MEAN CORPUSCULAR HGB CONC 31.8 (31.8-35.4); MEAN CORPUSCULAR VOLUME 105.4 fl (81.0-99.0); MONOCYTES # (AUTO) 0.6 K/uL (0.4-2.0); MONOCYTES % (AUTO) 11.7 (0-10); NEUTROPHILS # (AUTO) 1.9 K/ul (2.0-6.9); NEUTROPHILS % (AUTO) 39.6 % (42.2-75.2); PLATELET COUNT 215 10^3/uL (140-440); RDW COEFFICIENT OF VARIATION 15.7 % (11.6-14.8); RED BLOOD COUNT 2.95 10^6/ul (4.20-5.40); WHITE BLOOD COUNT 4.78 K/ul (4.6-10.2)
[2022-02-25 05:24] LABS: ALANINE AMINOTRANSFERASE 45.2 U/L (0-35); ALBUMIN 1.94 g/dL (3.5-5.0); ALKALINE PHOSPHATASE 99.9 U/L (53-141); ASPARTATE AMINO TRANSFERASE 53.9 U/L (14-36); BILIRUBIN,TOTAL 0.41 mg/dL (0.2-1.3); CALCIUM 7.39 mg/dL (8.4-10.2); CARBON DIOXIDE 17.7 mmol/L (22-30.0); CHLORIDE 105.3 mmol/L (98-107); CREATININE 1.35 mg/dL (0.60-1.30); GLUCOSE 85.9 mg/dL (74-106); POTASSIUM 4.78 mmol/L (3.5-5.1); SODIUM 133.1 mmol/L (134.5-145); TOTAL PROTEIN 4.38 g/dL (6.3-8.2)
[2022-02-25] MEDS: SYNTHROID PO SCH (05:58)
[2022-02-25] MEDS: PERCOCET 10-325 PO SCH ×4 (05:58→23:33)
[2022-02-25] MEDS: PROTONIX PO SCH (05:58)
[2022-02-25] MEDS: LASIX TAB PO SCH (05:58)
[2022-02-25] MEDS: MILK OF MAGNESIA PO SCH (08:27)
[2022-02-25] MEDS: LOVENOX SUBCUT SCH (08:27)
[2022-02-25] MEDS: MICRO-K CAP PO SCH (08:28)
[2022-02-25] MEDS: ZAROXOLYN PO SCH (08:28)
[2022-02-25] MEDS: MIRALAX PO SCH (08:29)
[2022-02-25] MEDS: SOMA PO SCH ×3 (08:29→20:24)
[2022-02-25] MEDS: ATIVAN PO SCH ×2 (08:29→20:25)
[2022-02-25] MEDS: ZEBETA PO SCH (08:29)
--- NOTE | 2022-02-25 11:44 | HP ---
DATE OF SERVICE: 02/21/22 REASON FOR HOSPITALIZATION: Weakness. HISTORY OF PRESENT ILLNESS: 71 year old white female hospitalized with history of having one month of generalized weakness progressively got worse in last 7 days to the point where she is not able to walk. Appetite which has been diminishing. 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 No fever or chills. Weakness and fatigue. HEENT: Eyes: No visual changes. No eye pain. No eye discharge. ENT: No runny nose. No epistaxis. No sinus pain. No sore throat. No odynophagia. No ear pain. No congestion. RESPIRATORY: No cough, no congestion. No hemoptysis. Shortness of breath on exertion as usual. CARDIOVASCULAR: No angina symptoms. No CHF symptoms. No atypical chest pain for CAD. No palpitations. No PND. No orthopnea. GASTROINTESTINAL: No abdominal pain. Mild nausea. No vomiting. No diarrhea or constipation. No hematemesis. No hematochezia. Appetite has been that good. GENITOURINARY: No urgency. No frequency. No dysuria. No hematuria. No obstructive symptoms. No discharge. No pain. No significant abnormal bleeding. MUSCULOSKELETAL: No musculoskeletal pain. No joint swelling. No arthritis. Generalized weakness and inability to get up. NEUROLOGICAL: No headache. No neck pain. No syncope. No seizures. No dizziness. PSYCHIATRIC: Not anxious. No depression. No suicidal thoughts. No homicidal thoughts. SKIN: No rash. No lesions. No wounds. ENDOCRINE: No unexplained weight loss. No weight gain. HEMATOLOGIC/LYMPHATIC: No anemia. No purpura. No petechiae. No prolonged or excessive bleeding. No palpable lymph nodes. PERSONAL/FAMILY/SOCIAL HISTORY: The patient is and lives with the , nonsmoker. No alcohol abuse. Used to do all activity of daily living last seen in the office on 12/02/21 when she walked in with the walker. MEDICATIONS: Bisoprolol Calcium Soma compound Nexium Lasix Levothyroxine Lorazepam Metolazone Oxycodone Potassium Pravastatin Requip The patient says that she hasn't been taking her Lasix because she has to get up to pee and she has no strength getting up. She has been taking some of the medication as she has been forgetful and nobody is giving her medications when she forgets or reminds them. ALLERGIES: Ciprofloxacin Iodinated contrast Penicillin Latex PHYSICAL EXAMINATION: GENERAL: The patient is oriented to time, place and person. VITAL SIGNS: Temperature 97.4, pulse 76, respiratory rate 16, blood pressures 137/60 and pulse ox 97% on room air. HEENT: Head normocephalic, atraumatic. Eyes: Extraocular muscles are intact. Pupils are equal, round and reactive to light and accommodation. Ears: No lesions. Nose appeared normal. Throat: No exudate or erythema. NECK: Supple. No JVD, no carotid bruit. No lymphadenopathy or thyromegaly. LUNGS: Decreased breath sounds. Good air entry. Clear to auscultation. Percussion note normal. Chest symmetrical. HEART: S1, S2, no S3. No murmur. Distant. No cyanosis or clubbing. No ascites. Pulses: Dorsalis pedis and posterior tibial pulses +1 bilaterally. ABDOMEN: Soft. Protuberant. Nontender. Bowel sounds active. No CVA tenderness. No mass felt. EXTREMITIES: 2+ pitting edema. Full range of motion of all extremities, equal. NEUROLOGIC: No focal deficit. Cranial nerves II through XII are grossly intact. No headache, no double vision or headache. SKIN: Dry. Intact. Turgor - normal. Mucous membranes dry. LYMPHATIC: No palpable lymph nodes/no lymphedema. MUSCULOSKELETAL: Normal joints with no swelling. Muscle tone is normal. LABS: Hgb 11.8, hct 37, WBC 5,000 normal differential, creatinine 1.5,BUN 34, potassium 4.8, ALT 92, AST 71. PRO BNP 2,770, TSH less than 0.015, hgb 11.8, hct 37. Chest x-ray normal. Cardiac markers negative. ABG pO2 117, pCO2 24, pH 7.36 with bicarb was -11, saturation 96% that was on room air. U/A showed 3+ bacteria, 1+ leukocyte esterase. EKG sinus rhythm, low voltage ASSESSMENT: 1. Urinary tract infection 2. Dehydration 3. Generalized swelling with fluid retention 4. Morbid obesity 5. Abnormal liver profile likely from fatty liver 6. Metabolic acidosis 7. Severe generalized osteoarthritis involving spine, knees and ankles 8. History of C spine fusion 9. Hypothyroidism 10. Hypertension 11. Generalized anxiety disorder 12. Restless leg syndrome PLAN: 1. Hospitalize the patient with routine telemetry orders 2. Serial EKGs 3. Cardiac markers 4. Rocephin 1 gram IV every 24 hour 5. Azactam 1 gram Q 12 6. IV fluids 75cc per hour 7. Advised to 20mg of Lasix just for swelling of the legs and elevate the legs 8. Oxygen on 2 liters for possibility of hypoxic runs at night from sleep apnea. 9. The patient is noncompliant, not taking her medications on regular basis 10. PRO BNP is elevated, I don't see any evidence of congestive heart failure. The patient does have any clinical indication like S3, doesn't have any orthopnea, lungs are clear on auscultation. Chest x-ray is practically normal. ProBNP elevation is from renal insufficiency, morbid obesity, sepsis from UTI, etc. CONDITION: Stable. TIME SPENT: More than 70 minutes. MTDD
[2022-02-25] MEDS ORDERED: DULCOLAX PO ONE (13:04)
[2022-02-25] MEDS ORDERED: DIFLUCAN PO ONE (13:08)
[2022-02-25 13:29] LABS: ABG O2 HGB 96.3 % (95-100); ABG PH 7.38 (7.35-7.45); BEecf -10.3 (-2.0-3.0); HCO3 14.8 (21-28); MetHb 0.5 (0-1.5); TCO2 15.6 (19-24); sO2 96.9 % (94-98); tHb 10.6 g/dl (11.7-17.4)
[2022-02-25] MEDS ORDERED: NYSTOP POWDER TP SCH (13:30)
[2022-02-25] MEDS: OMNICEF PO SCH ×2 (14:05→20:25)
[2022-02-25] MEDS: NYSTOP POWDER TP SCH ×2 (14:06→20:26)
[2022-02-26] MEDS: LASIX TAB PO SCH (05:45)
[2022-02-26] MEDS: PERCOCET 10-325 PO SCH ×4 (05:45→23:40)
[2022-02-26] MEDS: SYNTHROID PO SCH (05:45)
[2022-02-26 06:53] LABS: BASOPHILS % (AUTO) 0.5 % (0.0-3.0); EOSINOPHILS # (AUTO) 0.1 K/ul (0.0-0.7); HEMATOCRIT 33.3 % (37.0-47.0); HEMOGLOBIN 10.5 g/dl (12.0-16.0); IMMATURE GRANULOCYTE % (AUTO) 0.5 % (0.0-5.0); LYMPHOCYTES # (AUTO) 1.6 K/uL (0.60-3.4); LYMPHOCYTES % (AUTO) 28.7 (10.0-50.0); MEAN CORPUSCULAR HEMOGLOBIN 32.9 pg (27.0-31.0); MEAN CORPUSCULAR HGB CONC 31.5 (31.8-35.4); MEAN CORPUSCULAR VOLUME 104.4 fl (81.0-99.0); MONOCYTES # (AUTO) 0.8 K/uL (0.4-2.0); MONOCYTES % (AUTO) 13.5 (0-10); NEUTROPHILS # (AUTO) 3.1 K/ul (2.0-6.9); NEUTROPHILS % (AUTO) 54.8 % (42.2-75.2); PLATELET COUNT 226 10^3/uL (140-440); RDW COEFFICIENT OF VARIATION 15.8 % (11.6-14.8); RED BLOOD COUNT 3.19 10^6/ul (4.20-5.40); WHITE BLOOD COUNT 5.57 K/ul (4.6-10.2)
[2022-02-26] MEDS: PROTONIX PO SCH (07:35)
[2022-02-26 08:33] LABS: ALANINE AMINOTRANSFERASE 43.5 U/L (0-35); ALBUMIN 2.17 g/dL (3.5-5.0); ALKALINE PHOSPHATASE 115.7 U/L (53-141); ASPARTATE AMINO TRANSFERASE 50.4 U/L (14-36); BILIRUBIN,TOTAL 0.49 mg/dL (0.2-1.3); BLOOD UREA NITROGEN 28.3 mg/dL (7-17); CALCIUM 7.77 mg/dL (8.4-10.2); CARBON DIOXIDE 17.4 mmol/L (22-30.0); CREATININE 1.19 mg/dL (0.60-1.30); GLUCOSE 94.3 mg/dL (74-106); POTASSIUM 4.82 mmol/L (3.5-5.1); SODIUM 133.3 mmol/L (134.5-145); TOTAL PROTEIN 4.93 g/dL (6.3-8.2)
[2022-02-26] MEDS: LOVENOX SUBCUT SCH (08:55)
[2022-02-26] MEDS: MICRO-K CAP PO SCH (08:59)
[2022-02-26] MEDS: SOMA PO SCH ×3 (08:59→21:07)
[2022-02-26] MEDS: ZAROXOLYN PO SCH (09:00)
[2022-02-26] MEDS: ZEBETA PO SCH (09:00)
[2022-02-26] MEDS: ATIVAN PO SCH ×2 (09:00→21:07)
[2022-02-26] MEDS: OMNICEF PO SCH ×2 (09:00→21:07)
[2022-02-26] MEDS: MIRALAX PO SCH (09:02)
[2022-02-26] MEDS: MILK OF MAGNESIA PO SCH (09:02)
[2022-02-26] MEDS: NYSTOP POWDER TP SCH ×2 (09:05→21:08)
[2022-02-26] MEDS: SODIUM CHLORIDE 1,000 ML IV SCH (13:57)
[2022-02-26] MEDS: KENALOG 0.1% TP PRN (15:24)
[2022-02-27 05:09] LABS: BASOPHILS % (AUTO) 0.6 % (0.0-3.0); EOSINOPHILS # (AUTO) 0.2 K/ul (0.0-0.7); EOSINOPHILS % (AUTO) 3.3 % (0.0-7.0); HEMOGLOBIN 9.1 g/dl (12.0-16.0); IMMATURE GRANULOCYTE % (AUTO) 0.6 % (0.0-5.0); LYMPHOCYTES % (AUTO) 39.8 (10.0-50.0); MEAN CORPUSCULAR HGB CONC 31.4 (31.8-35.4); MEAN CORPUSCULAR VOLUME 105.1 fl (81.0-99.0); MONOCYTES # (AUTO) 0.7 K/uL (0.4-2.0); MONOCYTES % (AUTO) 13.4 (0-10); NEUTROPHILS # (AUTO) 2.1 K/ul (2.0-6.9); NEUTROPHILS % (AUTO) 42.3 % (42.2-75.2); PLATELET COUNT 199 10^3/uL (140-440); RDW COEFFICIENT OF VARIATION 16.2 % (11.6-14.8); RED BLOOD COUNT 2.76 10^6/ul (4.20-5.40); WHITE BLOOD COUNT 4.92 K/ul (4.6-10.2)
[2022-02-27 05:21] LABS: ALANINE AMINOTRANSFERASE 31.4 U/L (0-35); ALBUMIN 1.89 g/dL (3.5-5.0); ALKALINE PHOSPHATASE 93.6 U/L (53-141); ASPARTATE AMINO TRANSFERASE 38.6 U/L (14-36); BILIRUBIN,TOTAL 0.34 mg/dL (0.2-1.3); BLOOD UREA NITROGEN 26.9 mg/dL (7-17); CALCIUM 7.6 mg/dL (8.4-10.2); CARBON DIOXIDE 18.6 mmol/L (22-30.0); CHLORIDE 106.9 mmol/L (98-107); CREATININE 1.08 mg/dL (0.60-1.30); GLUCOSE 91.2 mg/dL (74-106); POTASSIUM 4.47 mmol/L (3.5-5.1); SODIUM 133.4 mmol/L (134.5-145); TOTAL PROTEIN 4.27 g/dL (6.3-8.2)
[2022-02-27] MEDS: PERCOCET 10-325 PO SCH ×3 (05:58→17:30)
[2022-02-27] MEDS: LASIX TAB PO SCH (05:58)
[2022-02-27] MEDS: PROTONIX PO SCH (05:58)
[2022-02-27] MEDS: SYNTHROID PO SCH (05:59)
[2022-02-27] MEDS: MILK OF MAGNESIA PO SCH (08:42)
[2022-02-27] MEDS: ZEBETA PO SCH (08:44)
[2022-02-27] MEDS: OMNICEF PO SCH ×2 (08:44→20:53)
[2022-02-27] MEDS: ZAROXOLYN PO SCH (08:44)
[2022-02-27] MEDS: MICRO-K CAP PO SCH (08:45)
[2022-02-27] MEDS: ATIVAN PO SCH ×2 (08:45→20:53)
[2022-02-27] MEDS: MIRALAX PO SCH (08:46)
[2022-02-27] MEDS: NYSTOP POWDER TP SCH ×2 (08:47→21:02)
[2022-02-27] MEDS: SOMA PO SCH ×3 (08:48→20:53)
[2022-02-27] MEDS: LOVENOX SUBCUT SCH (08:49)
[2022-02-27] MEDS: KENALOG 0.1% TP PRN (13:45)
[2022-02-27] MEDS ORDERED: REQUIP PO SCH (21:00)
[2022-02-28 05:16] VITALS: BP 102/65
[2022-02-28] MEDS: LASIX TAB PO SCH (05:37)
[2022-02-28] MEDS: PROTONIX PO SCH (05:37)
[2022-02-28] MEDS: PERCOCET 10-325 PO SCH ×2 (05:37)
[2022-02-28] MEDS: SYNTHROID PO SCH (05:42)
[2022-02-28 05:49] LABS: BASOPHILS % (AUTO) 0.8 % (0.0-3.0); EOSINOPHILS # (AUTO) 0.1 K/ul (0.0-0.7); EOSINOPHILS % (AUTO) 2.3 % (0.0-7.0); HEMATOCRIT 31.5 % (37.0-47.0); HEMOGLOBIN 9.8 g/dl (12.0-16.0); IMMATURE GRANULOCYTE % (AUTO) 0.6 % (0.0-5.0); LYMPHOCYTES # (AUTO) 1.5 K/uL (0.60-3.4); MEAN CORPUSCULAR HEMOGLOBIN 32.8 pg (27.0-31.0); MEAN CORPUSCULAR HGB CONC 31.1 (31.8-35.4); MEAN CORPUSCULAR VOLUME 105.4 fl (81.0-99.0); MONOCYTES # (AUTO) 0.6 K/uL (0.4-2.0); MONOCYTES % (AUTO) 13.2 (0-10); NEUTROPHILS # (AUTO) 2.5 K/ul (2.0-6.9); NEUTROPHILS % (AUTO) 52.1 % (42.2-75.2); PLATELET COUNT 209 10^3/uL (140-440); RDW COEFFICIENT OF VARIATION 16.1 % (11.6-14.8); RED BLOOD COUNT 2.99 10^6/ul (4.20-5.40); WHITE BLOOD COUNT 4.78 K/ul (4.6-10.2)
[2022-02-28 06:09] LABS: ALANINE AMINOTRANSFERASE 33.1 U/L (0-35); ALBUMIN 2.12 g/dL (3.5-5.0); ASPARTATE AMINO TRANSFERASE 44.8 U/L (14-36); BILIRUBIN,TOTAL 0.42 mg/dL (0.2-1.3); BLOOD UREA NITROGEN 24.6 mg/dL (7-17); CALCIUM 7.98 mg/dL (8.4-10.2); CARBON DIOXIDE 21.6 mmol/L (22-30.0); CHLORIDE 105.9 mmol/L (98-107); CREATININE 1.13 mg/dL (0.60-1.30); GLUCOSE 96.8 mg/dL (74-106); POTASSIUM 4.48 mmol/L (3.5-5.1); SODIUM 134.8 mmol/L (134.5-145); TOTAL PROTEIN 4.63 g/dL (6.3-8.2)
[2022-02-28 07:21] VITALS: TEMP 97.6
[2022-02-28 08:16] LABS: RETICULOCYTE HEMOGLOBIN 38.5
[2022-02-28 08:28] LABS: IRON 55.9 ug/dL (37-170)
--- NOTE | 2022-02-28 08:49 | ECHO2D ---
Date of Exam: 02/26/2022 Ordering Physician: DR. ANN PAREDES Room #: [id number] Reason for Echo: SOB M-Mode Normal Adult Results LV Dimensions Normal Adult Results AoV Opening excursions >1.6 >1.6 LVEDD-base- 3.5-5.8 4.9 Ao root dimensions 2.0-3.7 3.4 LVESD-base- 3.1-4.6 L. Atrium dimensions 1.9-3.8 4.9 Post. Wall thickness 0.8-1.1 1.1 IV septum (thickness) 0.7-1.2 1.2 Post. Wall excursion 0.72-1.3 NORMAL Septal motion NORMAL Systolic motion R. Ventricular cavity 1.5-2.0 4.3 LVEF 60% 64% Paradoxical septal wall motion NORMAL 2-D : ENLARGED LEFT ATRIAL CAVITY AND RIGHT VENTRICLE CAVITY. NORMAL VALVES--NORMAL LEFT VENTRICLE CONTRACTILITY AND LEFT VENTRICLE SIZE, NO EFFUSION, NO THROMBUS M-MODE: MV: NORMAL AV: NORMAL TV: NORMAL PV: CHAMBER SIZE: ENLARGED RIGHT VENTRICLE AND LEFT ATRIAL CAVITIES WALL MOTION: NORMAL PERICARDIUM: NORMAL INTERPRETATION: 1. BORDERLINE LEFT VENTRICLE HYPERTROPHY WITH ENLARGED LEFT ATRIAL CAVITY 2. ENLARGED RIGHT VENTRICLE CAVITY 3. NORMAL VALVES 4. NORMAL LEFT VENTRICLE CAVITY AND LEFT VENTRICLE CONTRACTILITY MTDD
[2022-02-28] MEDS ORDERED: BACTROBAN TP SCH (09:00)
[2022-02-28] MEDS ORDERED: WELLBUTRIN PO SCH (09:00)
[2022-02-28] MEDS ORDERED: PRAVACHOL PO SCH (09:00)
[2022-02-28] MEDS ORDERED: ALDACTONE PO SCH (09:00)
[2022-02-28] MEDS ORDERED: WELLBUTRIN XL PO SCH (09:00)
[2022-02-28 09:03] LABS: FERRITIN 74.7 ng/mL (11.1-264.0)
[2022-02-28 09:34] LABS: FOLATE 6.37 ng/mL
--- NOTE | 2022-02-28 09:38 | PCM.PROG ---
Attending Provider: ATTENDING PROVIDER: Dr. ANN PAREDES This patient is seen with Tamiko Alexander, Nurse Practitioner. DATE OF SERVICE: 02/28/22 SUBJECTIVE: This 71 year old /WHITE F was hospitalized 02/21/22. Weakness has slightly improved. The patient is to be discharged to [facility] for continuation of therapy today. Medications have been reviewed and reconciled. Medication misuse has been discussed in detail with the patient. REVIEW OF SYSTEMS: CONSTITUTIONAL: No night sweats. No fatigue, malaise, lethargy. No fever or chills. Weakness. HEENT: Eyes: No visual changes. No eye pain. No eye discharge. ENT: No runny nose. No epistaxis. No sinus pain. No odynophagia. No congestion. RESPIRATORY: No cough, no congestion. No hemoptysis. No shortness of breath. CARDIOVASCULAR: No angina symptoms. No CHF symptoms. No atypical chest pain for CAD. No palpitations. No orthopnea.. GASTROINTESTINAL: No abdominal pain. No nausea or vomiting. No diarrhea or constipation. No hematemesis. No hematochezia. GENITOURINARY: No urgency. No frequency. No dysuria. No hematuria. No obstructive symptoms. No discharge. No pain. No significant abnormal bleeding. MUSCULOSKELETAL: No musculoskeletal pain; no joint swelling. Leg edema. Chronic pain. NEUROLOGICAL: Awake, alert, oriented to time, place and person. No headache. No neck pain. No syncope. No seizures. No dizziness. PSYCHIATRIC: Not anxious. No depression. No suicidal thoughts. No homicidal thoughts. SKIN: No rash. No lesions. No wounds. ENDOCRINE: No unexplained weight loss. No weight gain. HEMATOLOGIC/LYMPHATIC: No anemia. No purpura. No petechiae. No prolonged or excessive bleeding. No palpable lymph nodes. PHYSICAL EXAMINATION: GENERAL: The patient is awake, alert and oriented, sitting in bed in no distress. VITAL SIGNS: Temperature 97.6 F, Pulse 77, Respiratory Rate 20, BP 102/65, Pulse Ox 100% HEENT: Head normocephalic, atraumatic. Eyes: Extraocular muscles are intact. Pupils are equal, round and reactive to light and accommodation. Ears: No lesions. Nose appeared normal. Throat: No exudate or erythema. NECK: Supple. No JVD, no carotid bruit. No lymphadenopathy or thyromegaly. LUNGS: Diminished breath sounds. Clear to auscultation. Percussion note n ormal. Chest symmetrical. HEART: S1, S2, no S3. No murmurs. No cyanosis or clubbing. No ascites. Pulses: Dorsalis pedis and posterior tibial pulses +1 to +2 both sides. ABDOMEN: Soft. Non-tender. Bowel sounds active. No CVA tenderness. No mass felt. EXTREMITIES: 2+ bilateral leg edema. Full range of motion of all extremities, equal. NEUROLOGIC: No focal deficit. Cranial nerves II through XII are grossly intact. No headache. No double vision. SKIN: Not dry. Intact. Turgor-normal. LYMPHATIC: No palpable lymph nodes/no lymphedema. MUSCULOSKELETAL: Normal joints with no swelling. Muscle tone is normal. LAB REVIEW: 02/28/22 05:29 02/28/22 05:29 02/28/22 05:29: Sodium 134.8, Potassium 4.48, Chloride 105.9, Carbon Dioxide 21.6 L, Anion Gap 11.78, BUN 24.6 H, Creatinine 1.13, Estimated GFR (MDRD) 48.00, BUN/Creatinine Ratio 21.76, Glucose 96.8, Calcium 7.98 L, Total Bilirubin 0.42, AST 44.8 H, ALT 33.1, Alkaline Phosphatase 98.0, Total Protein 4.63 L, Albumin 2.12 L, Globulin 2.51, Albumin/Globulin Ratio 0.84 02/28/22 05:29: WBC 4.78, RBC 2.99 L, Hgb 9.8 L, Hct 31.5 L, MCV 105.4 H, MCH 32.8 H, MCHC 31.1 L, RDW Coeff of Cameron 16.1 H, Plt Count 209, Immature Gran % (Auto) 0.6, Neut % (Auto) 52.1, Lymph % (Auto) 31.0, York % (Auto) 13.2 H, Eos % (Auto) 2.3, Baso % (Auto) 0.8, Neut # (Auto) 2.5, Lymph # (Auto) 1.5, York # (Auto) 0.6, Eos # (Auto) 0.1, Baso # (Auto) 0.0, Immature Gran # (Auto) 0.0 ASSESSMENT: Please see below. 1. Generalized weakness 2. Bilateral leg edema 3. Morbid obesity 4. Chronic back pain 5. DJD of L spine 6. Open areas to back of right knee 7. Depression PLAN: 1. Discharge to [facility] for PT/OT 2. Will continue medication 3. CBC and CMP in one week 4. Wellbutrin 150mg daily 5. Zaroxolyn 2.5mg Monday, Monday and Monday 6. Restart Pravastatin 7. Percocet 10mg Q 6 hours PRN 8. Continue Ativan 1mg BID 9. Aldactone 25mg PO once a day 10. Bactroban BID to ear lobes and behind right knee for two weeks 11. Other medications to be continued 12. [facility] Plan and coordination of the patient's care discussed in the presence of Sewing Pattern Layout Technician and nurse. SCRIBED BY: Evelyn BUCK scribed while in presence of service performed by Dr. Paredes/Tamiko Alexander APRN on 02/28/22 ([id number])
--- NOTE | 2022-02-28 09:46 | DS ---
DATE OF SERVICE: 02/28/22 FINAL DIAGNOSIS: 1. Generalized weakness 2. Bilateral leg edema 3. Morbid obesity 4. Chronic back pain 5. DJD of L spine 6. Open areas to back of right knee 7. Depression DISCHARGE INSTRUCTIONS: Discharge to [facility]. Resume all other medications as taken prior to admission. CBC and CMP to be drawn in one week from discharge. MEDICATIONS AT DISCHARGE: Calcium+Vitamin D two tablet PO daily Oxycodone-Acetaminophen 10-325 PO 4XD PRN K-Tab 10meq PO daily Soma 350mg PO TID Zaroxolyn 2.25mg PO QMWF Pravachol 40mg PO daily Synthroid 150mcg PO daily Nexium 40mg PO daily Zebeta 5mg PO daily Furosemide 20mg PO daily Flintstones Plus Iron one tablet PO daily NEW PRESCRIPTIONS: Wellbutrin 150 mg PO daily Aldactone 25 mg PO daily Bactroban topical BID to bilateral ear lobes and behind left knee for 2 weeks Zaroxolyn 2.5 mg every Monday, Monday, and Monday Percocet 10-325 mg Q6H PRN for pain DISCONTINUED MEDICATIONS: Requip DIET INSTRUCTIONS: Regular diet. ACTIVITY: Activity as tolerated. Use standard walker when up with activity. Patient has been provided new walker per insurance. HOSPITAL COURSE: 71 year old white female who presented to the ER stating unable to walk for several days due to extreme weakness and back pain. She had significant edema on admission which has since continued. Was found to have UTI positive Klebsiella. She was treated with Rocephin then Omnicef and has completed 7 days of antibiotics. Venous scan has been negative. During hospital stay multiple unknown medications that were not in a bottle were found in her bed. She has denied misuse of medications although we do believe this maybe the case. Drowsiness and weakness has somewhat improved with regulation of her medications. Also believe that she suffering from depression due to multiple social factors. We are going to start her on Wellbutrin. Her Percocet is going to be made PRN. She has open area on both ear lobes as well on the back of the right knee. She will use Bactroban BID. After discharge from [facility] may need to have a psychiatric consult. We will follow at the skilled nursing. She is discharged in stable condition. TIME SPENT: More than 60 minutes. [facility]
[2022-02-28] MEDS: MILK OF MAGNESIA PO SCH (09:59)
[2022-02-28] MEDS: MIRALAX PO SCH (09:59)
[2022-02-28] MEDS: ZAROXOLYN PO SCH (10:00)
[2022-02-28] MEDS: SOMA PO SCH (10:00)
[2022-02-28] MEDS: ZEBETA PO SCH (10:00)
[2022-02-28] MEDS: OMNICEF PO SCH (10:01)
[2022-02-28] MEDS: ATIVAN PO SCH (10:02)
[2022-02-28] MEDS: MICRO-K CAP PO SCH (10:03)
[2022-02-28] MEDS: LOVENOX SUBCUT SCH (10:04)
[2022-02-28] MEDS: NYSTOP POWDER TP SCH (11:09)
--- NOTE | 2022-02-28 11:43 | PN ---
DATE OF SERVICE: 02/25/22 SUBJECTIVE: 71 year old white female was hospitalized with generalized swelling, weakness and UTI. The patient was unable to get up for few weeks, noted to have UTI with Klebsiella being treated with Rocephin. Her condition has slowly improved and she is not able to get up on her own, cooperative as far as physical therapy is concerned. REVIEW OF SYSTEMS: CONSTITUTIONAL: No night sweats. No fatigue, malaise, lethargy. No fever or chills. HEENT: Eyes: No visual changes. No eye pain. No eye discharge. ENT: No runny nose. No epistaxis. No sinus pain. No sore throat. No odynophagia. No congestion. RESPIRATORY: No cough, no congestion. No hemoptysis. No shortness of breath. CARDIOVASCULAR: No angina symptoms. No CHF symptoms. No atypical chest pain for CAD. No palpitations. No PND. No orthopnea. GASTROINTESTINAL: No abdominal pain. No nausea or vomiting. No diarrhea or constipation. No hematemesis. No hematochezia. GENITOURINARY: No urgency. No frequency. No dysuria. No hematuria. No obstructive symptoms. No discharge. No pain. No significant abnormal bleeding. MUSCULOSKELETAL: No musculoskeletal pain; no joint swelling. Generalized aches and pain. NEUROLOGICAL: No headache. No neck pain. No syncope. No seizures. No dizziness. PSYCHIATRIC: Not anxious. No depression. No suicidal thoughts. No homicidal thoughts. SKIN: No rash. No lesions. No wounds. ENDOCRINE: No unexplained weight loss. No weight gain. HEMATOLOGIC/LYMPHATIC: No anemia. No purpura. No petechiae. No prolonged or excessive bleeding. No palpable lymph nodes. PHYSICAL EXAMINATION: VITAL SIGNS: Temperature 97.2, pulse 70, respiratory rate 18, blood pressure 114/68 and pulse ox 99% on room air. HEENT: Head normocephalic, atraumatic. Eyes: Extraocular muscles are intact. Pupils are equal, round and reactive to light and accommodation. Ears: No lesions. Nose appeared normal. Throat: No exudate or erythema. NECK: Supple. No JVD, no carotid bruit. No lymphadenopathy or thyromegaly. LUNGS: Decreased breath sounds but clear to auscultation. Percussion note normal. Chest symmetrical. HEART: S1, S2, no S3. No murmurs. No cyanosis or clubbing. No ascites. Pulses: Dorsalis pedis and posterior tibial pulses +1 to +2 bilaterally. ABDOMEN: Soft. Nontender. Bowel sounds active. No CVA tenderness. No mass felt. EXTREMITIES: No edema. Full range of motion of all extremities, equal. NEUROLOGIC: No focal deficit. Cranial nerves II through XII are grossly intact. No headache. No double vision. SKIN: Not dry. Intact. Turgor - normal. LYMPHATIC: No palpable lymph nodes/no lymphedema. MUSCULOSKELETAL: Normal joints with no swelling. Muscle tone is normal. LABS: Hgb 9.9, hct 31, WBC 4,700 normal differential, creatinine 1.3, BUN 32, potassium 4.7 ASSESSMENT: 1. Acidosis seems to be resolving 2. UTI seems to be under control 3. Generalized edema seems to be little less. The patient is on Lasix and Zaroxolyn. PLAN: 1. To be given Nystatin for old fungal infections especially in the knees. 2. 1 Diflucan tablet 150mg 3. ABG in the morning 4. Elevate the legs 5. The patient advised strongly to walk 6. The patient is going to be [facility] to [facility], she is agreeable. This is not good because of the patient's very poor motivation 7. Narcotic effects discussed, Narcan which is available in all pharmacy, free, discussed with her in case of overdose. The was present in the room at that time. 8. The patient has anemia, the patient is status post gastric bypass. We have done anemia profile. We will monitor her hgb and hct. No active GI bleed. CODE: Extensive TIME SPENT: More than 30 minutes. Plan and coordination of the patient's care discussed in the presence of nurse. SUE
--- NOTE | 2022-02-28 12:44 | PN ---
DATE OF SERVICE: 02/23/22 SUBJECTIVE: 71 year old white female hospitalized with fluid retention, generalized swelling with fluid retention, generalized swelling with weakness, inability to get up and walk. The patient has UTI which is being treated with antibiotics. The patient's condition in past two days has improved, more strength. Appetite seems to have improved. The is in the room and agreed that the patient is noncompliant of all aspect of medical care. REVIEW OF SYSTEMS: CONSTITUTIONAL: No night sweats. No fever or chills.Weakness and fatigue. HEENT: Eyes: No visual changes. No eye pain. No eye discharge. ENT: No runny nose. No epistaxis. No sinus pain. No sore throat. No odynophagia. No congestion. RESPIRATORY: Mild cough, no congestion. No hemoptysis. Shortness of breath on exertion. CARDIOVASCULAR: No angina symptoms. No CHF symptoms. No atypical chest pain for CAD. No palpitations. No PND. No orthopnea. GASTROINTESTINAL: No abdominal pain. No nausea or vomiting. No diarrhea or constipation. No hematemesis. No hematochezia. GENITOURINARY: No urgency. No frequency. No dysuria. No hematuria. No obstructive symptoms. No discharge. No pain. No significant abnormal bleeding. MUSCULOSKELETAL: No musculoskeletal pain; no joint swelling. Weakness of the muscles with inability to walk for past several weeks. NEUROLOGICAL: No headache. No neck pain. No syncope. No seizures. No dizziness. PSYCHIATRIC: Not anxious. No depression. No suicidal thoughts. No homicidal thoughts. SKIN: No rash. No lesions. No wounds. ENDOCRINE: No unexplained weight loss. No weight gain. HEMATOLOGIC/LYMPHATIC: No anemia. No purpura. No petechiae. No prolonged or excessive bleeding. No palpable lymph nodes. PHYSICAL EXAMINATION: VITAL SIGNS: Temperature 97.6, pulse 67, respiratory rate 16, blood pressure 135/65 and pulse ox 100%. Weighs 403 pounds with BMI 73. HEENT: Head normocephalic, atraumatic. Eyes: Extraocular muscles are intact. Pupils are equal, round and reactive to light and accommodation. Ears: No lesions. Nose appeared normal. Throat: No exudate or erythema. NECK: Supple. No JVD, no carotid bruit. No lymphadenopathy or thyromegaly. LUNGS: Decreased breath sounds but clear to auscultation. Percussion note normal. Chest symmetrical. HEART: S1, S2, no S3. No murmurs. No cyanosis or clubbing. No ascites. Pulses: Dorsalis pedis and posterior tibial pulses +1 to +2 bilaterally. ABDOMEN: Soft. Nontender. Bowel sounds active. No CVA tenderness. No mass felt. EXTREMITIES: No edema. Full range of motion of all extremities, equal. NEUROLOGIC: No focal deficit. Cranial nerves II through XII are grossly intact. No headache. No double vision. SKIN: Not dry. Intact. Turgor - normal. LYMPHATIC: No palpable lymph nodes/no lymphedema. MUSCULOSKELETAL: Normal joints with no swelling. Muscle tone is normal. LABS: Hgb 10.8, hct 33, WBC 5,100 normal differential, creatinine 1.5, BUN 34, potassium 5. ASSESSMENT: 1. Generalized edema likely multifactorial, inactivity, dependent edema leg edema. 2. UTI from Klebsiella with Rocephin 3. Dehydration/Chronic kidney disease stage III. The patient is strongly advised to drink a lot of fluids. Appetite has improved. 4. Chronic anemia 5. Status post gastric bypass 6. Fatty liver with abnormal liver enzymes, mildly elevated 7. Chronic lung disease 8. Metabolic acidosis on admission secondary to multiple factors PLAN: 1. Continue IV antibiotics 2. CBC and CMP to be done daily 3. ABG to be done today 4. Discontinue Azactam as Rocephin is good enough for Klebsiella in the urine 5. The patient will have anemia profile done 6. Liver profile 7. Will do echo for evaluating LV function TIME SPENT: More than 30 minutes. Plan and coordination of the patient's care discussed in the presence of nurse. SUE
--- NOTE | 2022-02-28 14:22 | PN ---
DATE OF SERVICE: 02/24/22 SUBJECTIVE: 71 year old white female hospitalized with generalized edema, especially bilateral leg dependant edema with metabolic acidosis type of picture with UTI. The patient's UTI was Klebsiella treated with appropriate antibiotics. She is feeling somewhat better. Edema is still 1-2+, more than 400 pounds with BMI of 73. The patient has sedentary lifestyle, noncompliant, very poor motivation for the patient to ambulate. She doesn't seem to be in distress at all. REVIEW OF SYSTEMS: CONSTITUTIONAL: No night sweats. No fatigue, malaise, lethargy. No fever or chills. HEENT: Eyes: No visual changes. No eye pain. No eye discharge. ENT: No runny nose. No epistaxis. No sinus pain. No sore throat. No odynophagia. No congestion. RESPIRATORY: No cough, no congestion. No hemoptysis. No shortness of breath. CARDIOVASCULAR: No angina symptoms. No CHF symptoms. No atypical chest pain for CAD. No palpitations. No PND. No orthopnea. GASTROINTESTINAL: No abdominal pain. No nausea or vomiting. No diarrhea or constipation. No hematemesis. No hematochezia. GENITOURINARY: No urgency. No frequency. No dysuria. No hematuria. No obstructive symptoms. No discharge. No pain. No significant abnormal bleeding. MUSCULOSKELETAL: No musculoskeletal pain; no joint swelling. Back pain and arthritic pain. NEUROLOGICAL: No headache. No neck pain. No syncope. No seizures. No dizziness. PSYCHIATRIC: Not anxious. No depression. No suicidal thoughts. No homicidal thoughts. SKIN: No rash. No lesions. No wounds. ENDOCRINE: No unexplained weight loss. No weight gain. HEMATOLOGIC/LYMPHATIC: No anemia. No purpura. No petechiae. No prolonged or excessive bleeding. No palpable lymph nodes. PHYSICAL EXAMINATION: VITAL SIGNS: Temperature 96.7, pulse 70, respiratory rate 18, blood pressure 117/74 and pulse 100%. HEENT: Head normocephalic, atraumatic. Eyes: Extraocular muscles are intact. Pupils are equal, round and reactive to light and accommodation. Ears: No lesions. Nose appeared normal. Throat: No exudate or erythema. NECK: Supple. No JVD, no carotid bruit. No lymphadenopathy or thyromegaly. LUNGS: Decreased breath sounds but clear to auscultation. Percussion note normal. Chest symmetrical. HEART: S1, S2, no S3. No murmurs. No cyanosis or clubbing. No ascites. Pulses: Dorsalis pedis and posterior tibial pulses +1 to +2 bilaterally. ABDOMEN: Soft. Nontender. Bowel sounds active. No CVA tenderness. No mass felt. EXTREMITIES: No edema. Full range of motion of all extremities, equal. NEUROLOGIC: No focal deficit. Cranial nerves II through XII are grossly intact. No headache. No double vision. SKIN: Not dry. Intact. Turgor - normal. LYMPHATIC: No palpable lymph nodes/no lymphedema. MUSCULOSKELETAL: Normal joints with no swelling. Muscle tone is normal. LABS: Hgb 10.8, hct 34, WBC 4,500 normal differential, creatinine 1.4, BUN 33, potassium 4.5. ASSESSMENT: 1. Generalized edema must less than before 2. Dependent leg edema 3. Severe morbid obesity with sedentary lifestyle 4. UTI Klebsiella being treated with Rocephin 5. Severe DJD of the spine 6. Chronic kidney stage III 7. Chronic anemia PLAN: 1. Advised the patient to get up and walk around and cooperative therapy 2. Zaroxolyn 2.5mg every day along with Lasix 3. Will do echo in couple of day CONDITION: stable. TIME SPENT: More than 30 minutes. Plan and coordination of the patient's care discussed in the presence of nurse. SUE
--- NOTE | 2022-03-01 09:19 | PN ---
DATE OF SERVICE: 02/26/22 SUBJECTIVE: 72 year old female hospitalized with generalized weakness, UTI and dependent leg edema. REVIEW OF SYSTEMS: CONSTITUTIONAL: No night sweats. No fatigue, malaise, lethargy. No fever or chills. HEENT: Eyes: No visual changes. No eye pain. No eye discharge. ENT: No runny nose. No epistaxis. No sinus pain. No sore throat. No odynophagia. No congestion. RESPIRATORY: No cough, no congestion. No hemoptysis. No shortness of breath. CARDIOVASCULAR: No angina symptoms. No CHF symptoms. No atypical chest pain for CAD. No palpitations. No PND. No orthopnea. GASTROINTESTINAL: No abdominal pain. No nausea or vomiting. No diarrhea or constipation. No hematemesis. No hematochezia. GENITOURINARY: No urgency. No frequency. No dysuria. No hematuria. No obstructive symptoms. No discharge. No pain. No significant abnormal bleeding. MUSCULOSKELETAL: No musculoskeletal pain; no joint swelling. Feels somewhat better in the legs but still not able to walk on her own, very poor motivation. NEUROLOGICAL: No headache. No neck pain. No syncope. No seizures. No dizziness. PSYCHIATRIC: Not anxious. No depression. No suicidal thoughts. No homicidal thoughts. SKIN: No rash. No lesions. No wounds. ENDOCRINE: No unexplained weight loss. No weight gain. HEMATOLOGIC/LYMPHATIC: No anemia. No purpura. No petechiae. No prolonged or excessive bleeding. No palpable lymph nodes. PHYSICAL EXAMINATION: VITAL SIGNS: Temperature 97.7, pulse 90, respiratory rate 16, blood pressure 120/77 and pulse ox 100%. HEENT: Head normocephalic, atraumatic. Eyes: Extraocular muscles are intact. Pupils are equal, round and reactive to light and accommodation. Ears: No lesions. Nose appeared normal. Throat: No exudate or erythema. NECK: Supple. No JVD, no carotid bruit. No lymphadenopathy or thyromegaly. LUNGS: Decreased breath sounds but clear to auscultation. Percussion note normal. Chest symmetrical. HEART: S1, S2, no S3. No murmurs. No cyanosis or clubbing. No ascites. Pulses: Dorsalis pedis and posterior tibial pulses +1 to +2 bilaterally. ABDOMEN: Soft. Nontender. Bowel sounds active. No CVA tenderness. No mass felt. EXTREMITIES: No edema. Full range of motion of all extremities, equal. NEUROLOGIC: No focal deficit. Cranial nerves II through XII are grossly intact. No headache. No double vision. SKIN: Not dry. Intact. Turgor - normal. LYMPHATIC: No palpable lymph nodes/no lymphedema. MUSCULOSKELETAL: Normal joints with no swelling. Muscle tone is normal. LABS: Hgb 10.5, hct 33, WBC 5,500 normal differential, creatinine 1.1, BUN 28, potassium 4.8. ASSESSMENT: 1. UTI seems to be resolving. 2. Weakness seems to be improving 3. Leg edema is a little less than before 4. Metabolic acidosis seems to have practically resolved PLAN: 1. Continue antibiotics 2. Continue to encourage the patient to get up and walk around 3. Continue Diuretics TIME SPENT: More than 30 minutes. Plan and coordination of the patient's care discussed in the presence of nurse. SUE
--- NOTE | 2022-03-01 09:23 | PN ---
DATE OF SERVICE: 02/27/22 SUBJECTIVE: 71 year old white female hospitalized with generalized and inability to walk. The patient had UTI and leg edema which is more or less chronic. Shortness of breath is multifactorial mostly severe morbid obesity with sedentary lifestyle has causes this problem. The patient has chronic lung disease. REVIEW OF SYSTEMS: CONSTITUTIONAL: No night sweats. No fatigue, malaise, lethargy. No fever or chills. Generalized weakness, still not able to walk on her own. HEENT: Eyes: No visual changes. No eye pain. No eye discharge. ENT: No runny nose. No epistaxis. No sinus pain. No sore throat. No odynophagia. No congestion. RESPIRATORY: No cough, no congestion. No hemoptysis. No shortness of breath. CARDIOVASCULAR: No angina symptoms. No CHF symptoms. No atypical chest pain for CAD. No palpitations. No PND. No orthopnea. GASTROINTESTINAL: No abdominal pain. No nausea or vomiting. No diarrhea or constipation. No hematemesis. No hematochezia. GENITOURINARY: No urgency. No frequency. No dysuria. No hematuria. No obstructive symptoms. No discharge. No pain. No significant abnormal bleeding. MUSCULOSKELETAL: No musculoskeletal pain; no joint swelling. NEUROLOGICAL: No headache. No neck pain. No syncope. No seizures. No dizziness. PSYCHIATRIC: Not anxious. No depression. No suicidal thoughts. No homicidal thoughts. SKIN: No rash. No lesions. No wounds. ENDOCRINE: No unexplained weight loss. No weight gain. HEMATOLOGIC/LYMPHATIC: No anemia. No purpura. No petechiae. No prolonged or excessive bleeding. No palpable lymph nodes. PHYSICAL EXAMINATION: VITAL SIGNS: Temperature 97.2, pulse 95, respiratory rate 19, blood pressure 160/80 and pulse ox 98%. HEENT: Head normocephalic, atraumatic. Eyes: Extraocular muscles are intact. Pupils are equal, round and reactive to light and accommodation. Ears: No lesions. Nose appeared normal. Throat: No exudate or erythema. NECK: Supple. No JVD, no carotid bruit. No lymphadenopathy or thyromegaly. LUNGS: Decreased breath sounds but clear to auscultation. Percussion note normal. Chest symmetrical. HEART: S1, S2, no S3. No murmurs. No cyanosis or clubbing. No ascites. Pulses: Dorsalis pedis and posterior tibial pulses +1 to +2 bilaterally. ABDOMEN: Soft. Nontender. Bowel sounds active. No CVA tenderness. No mass felt. EXTREMITIES: No edema. Full range of motion of all extremities, equal. NEUROLOGIC: No focal deficit. Cranial nerves II through XII are grossly intact. No headache. No double vision. SKIN: Not dry. Intact. Turgor - normal. LYMPHATIC: No palpable lymph nodes/no lymphedema. MUSCULOSKELETAL: Normal joints with no swelling. Muscle tone is normal. LABS: Hgb 9.1, hct 29, WBC 4,900 normal differential,creatinine 1, BUN 26, potassium 4.4. ASSESSMENT: 1. UTI seems to have resolved 2. Generalized weakness, still persists 3. Morbid obesity 4. Chronic lung disease 5. Dependent leg edema 6. Restless leg syndrome PLAN: 1. Restart Requip 1mg PO at HS for the legs 2. Strongly advised the patient to cooperate on effort for her rehab TIME SPENT: More than 30 minutes. Plan and coordination of the patient's care discussed in the presence of nurse. SUE
--- NOTE | 2022-03-01 14:15 | PN ---
DATE OF SERVICE: 02/28/22 SUBJECTIVE: The patient was seen and examined with the Nurse Practitioner. The patient's condition is stable. UTI is under control. Metabolic acidosis has resolved. Her kidney functions are a lot better. The patient's problem is noncompliance of medications. She is mixing up medications. She is noncompliant of all aspects of medical care and she is morbidly obese. Prognosis is guarded. [facility] Strongly advised to get motivated for physical therapy. The patient's discharge summary and discharged medications already discussed with Nurse Practitioner and discharge plan was carried out. TIME SPENT: More than 30 minutes. Plan and coordination of the patient's care discussed in the presence of nurse. SUE
--- NOTE | 2022-03-01 14:15 | PN ---
ADMISSION DAY: Level 5 REST OF THEM: Intermediate FINAL DAY: D as in discharge MTDD
== END 2022-02-28 10:50 | DRG 948 ==
LOC: ED 13:49 → MEDSURG A 18:05
PROVIDERS: ADMIT Internal Medicine; ATTEND Internal Medicine
DX: D64.9 Anemia, unspecified; E66.01 Morbid (severe) obesity due to excess calories; I11.0 Hypertensive heart disease with heart failure; I50.9 Heart failure, unspecified; E03.9 Hypothyroidism, unspecified; Z79.899 Other long term (current) drug therapy; N39.0 Urinary tract infection, site not specified; G25.81 Restless legs syndrome; E87.20 Acidosis, unspecified; R06.02 Shortness of breath; M54.50 Low back pain, unspecified; B96.1 Klebsiella pneumoniae [K. pneumoniae] as the cause of diseases classified elsewhere; F19.10 Other psychoactive substance abuse, uncomplicated; M15.0 Primary generalized (osteo)arthritis; M51.36 Other intervertebral disc degeneration, lumbar region; E86.0 Dehydration; R74.8 Abnormal levels of other serum enzymes; N28.9 Disorder of kidney and ureter, unspecified; F41.9 Anxiety disorder, unspecified; Z51.81 Encounter for therapeutic drug level monitoring; R53.1 Weakness; R26.2 Difficulty in walking, not elsewhere classified; N18.30 Chronic kidney disease, stage 3 unspecified; R60.9 Edema, unspecified; S81.001A Unspecified open wound, right knee, initial encounter; F32.A Depression, unspecified; Z20.822 Contact with and (suspected) exposure to COVID-19; Z99.81 Dependence on supplemental oxygen